=== PATIENT | female | born 1960 | race African-American/Black ===

== ENCOUNTER 2019-04-27 10:57 | Inpatient (IN) ==
[2019-04-27] MEDS ORDERED: PULMICORT INH ONE (11:07)
[2019-04-27] MEDS ORDERED: DUONEB (A & A) INH ONE (11:08)
[2019-04-27] MEDS ORDERED: SOLU-MEDROL IV ONE (11:08)
[2019-04-27 11:59] LABS: BE 12.2 mmoll (-3.0-3.0); BLOOD TYPE ARTERIAL; HCO3-(ACT) 34.3 mmoll (20.0-26.0); METHB 0.3 % (0.0-1.5); O2(CT) 16.5 mL/dL (15.0-23.0); PO2(98.6) 67 mmHg (60-100); SAMPLE BLOOD; THB 12.7 g/dL (11.5-17.4); pH(98.6) 7.36 (7.35-7.45)
[2019-04-27 12:02] LABS: ALLEN TEST YES; MODALITY CANNULA; PCO2(98.6) 72 mmHg (35-45)
--- NOTE | 2019-04-27 12:10 | Diag Imaging Result Doc PS360 ---
EXAM: CHEST-2 VIEWS 04/27/2019 HISTORY: cough TECHNIQUE: PA and lateral chest COMMENT: There are no previous studies. There is pleural thickening and/or loculated effusion bilaterally. There is cardiomegaly. There are coarse and platelike opacities over both lungs particularly the right upper lobe which may be due to fibrosis and/or atelectasis. There is increased interstitial markings generally which again may be due to pulmonary edema or fibrosis. IMPRESSION: Pleural parenchymal changes as described above. Advise comparison with previous studies. Cardiomegaly. Electronically signed by Rei Walker 04/27/2019 12:08 PM
[2019-04-27 12:26] LABS: AGAP 7; ALBUMIN 3.7 g/dL (3.5-5.0); ALKALINE PHOSPHATASE 72 U/L (32-104); BUN 6 mg/dL (8-22); CALCIUM 9.3 mg/dL (8.8-10.2); CHLORIDE 97 mmol/L (98-107); COSMO 281; CREATININE 0.4 mg/dL (0.5-0.9); ESTIMATED GFR > 60; GLUCOSE 144 mg/dL (70-104); GOT 12 U/L (10-30); GPT 11 U/L (10-36); POTASSIUM 4.4 mmol/L (3.5-5.1); SODIUM 141 mmol/L (136-145); TCO2 37 mmol/L (25-35); TOTAL PROTEIN 6.8 g/dL (6.3-8.3)
[2019-04-27] MEDS ORDERED: ROCEPHIN IV ONE (12:50)
[2019-04-27] MEDS ORDERED: NS 50 ML ONE (12:51)
[2019-04-27] MEDS ORDERED: MORPHINE IV PRN (12:56)
[2019-04-27] MEDS ORDERED: ZOFRAN IV PRN (12:56)
[2019-04-27 13:38] LABS: BASO# 0.03 X1000 (0.0-0.2); BASO% 0.3 % (0.0-0.8); EOS# 0.18 X1000 (0.0-0.7); EOS% 1.6 % (0.0-10.0); HEMATOCRIT 46.1 % (37.0-47.0); HEMOGLOBIN 12.5 g/dL (12.0-16.0); IMM GRAN# 0.03 X1000 (0.0-0.04); IMM GRAN% 0.3 % (0.0-0.5); LYMPH# 1.31 X1000 (1.2-3.4); LYMPH% 11.4 % (20.5-51.1); MCHC 27.1 g/dL (33-37); MCV 88.5 FL (81-99); MONO# 0.83 X1000 (0.11-0.59); MONO% 7.2 % (1.7-9.3); MPV 12.1 FL (7.4-10.4); NEUT# 9.08 X1000 (1.4-6.5); NEUT% 79.2 % (42.2-75.2); PLT 391 X1000 (130-400); RBC 5.21 XMIL (4.2-5.4); RDW 19.7 % (11.5-14.5); WBC 11.46 X1000 (4.8-10.8)
--- NOTE | 2019-04-27 13:40 | EKG Report ---
Test Performed on : 04/27/2019 11:08:44 AM Test Reason : sob; chf Blood Pressure : / mmHG Vent. Rate : 107 BPM Atrial Rate : 107 BPM P-R Int : 144 ms QRS Dur : 066 ms QT Int : 334 ms P-R-T Axes : 065 105 024 degrees QTc Int : 445 ms Sinus tachycardia. Biatrial enlargement Possible Right ventricular hypertrophy Abnormal ECG No previous ECGs available Unconfirmed Result
--- NOTE | 2019-04-27 14:21 | PROVIDER DOCUMENTATION ---
This chart was entered by Divya Cuevas Scribe, acting as scribe for Karen Miller MD. HPI-Respiratory General - General Stated Complaint: RESP DISTRESS Time Seen by Provider: 04/27/19 10:58 Source: patient, EMS Allergies/Adverse Reactions: Patient Allergies Allergy/AdvReac Type Severity Reaction Status Date / Time No Known Allergies Allergy Verified 04/27/19 11:17 - History of Present Illness-Resp Nature of Presenting Problem: 59yof presents to ED by EMS cc SOB and low o2. EMS reports they were called to pt PCP b/c pt o2 was in the 40's so EMS put pt on 5lit and o2 went up to 90%. Pt reports she is on 3lit of o2 at home. Pt denies cough, fever, chest pain, N/V/D. Pt has hx of COPD. Pt is tachypneic upon exam. 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 denies: chills, fever Eyes: reports: no symptoms reported Ears, Nose, Mouth & Throat: reports: no symptoms reported Cardiovascular: reports: see HPI. denies: chest pain Respiratory: reports: see HPI, shortness of breath. denies: cough Gastrointestinal: reports: see HPI. denies: diarrhea, nausea, vomiting Genitourinary: reports: no symptoms reported Musculoskeletal: reports: no symptoms reported Integumentary: reports: no symptoms reported Neurological: reports: no symptoms reported Psychiatric: reports: no symptoms reported Endocrine: reports: no symptoms reported Hematologic/Lymphatic: reports: no symptoms reported Allergic/Immunologic: reports: no symptoms reported All Other Systems: Reviewed and Negative Past History - Adult - PAST MEDICAL HISTORY-ADULT Review of Records: reports: Nursing Assessment Review, Medications Reviewed, Social history reviewed & non-contributory. Major Childhood Illnesses: reports: denies history Cardiovascular: reports: denies history Respiratory: reports: COPD Gastrointestinal: reports: denies history Obstetrical/Gynecological: reports: denies history Genitourinary: reports: denies history Musculoskeletal: reports: denies history Neurological: reports: denies history Endocrine/Immune: reports: denies history Other Conditions: reports: denies history - IMMUNIZATION STATUS Childhood Immunizations: See Nurse Assessment Flu Vaccine: See Nurse Assessment - FAMILY HISTORY Family History: reviewed, not pertinent - SOCIAL HISTORY Smoking: quit greater than 1 year Physical Exam-General - PHYSICAL EXAM-ADULT Initial Vital Signs Reviewed: Yes - CONSTITUTIONAL General Appearance: alert, moderate distress. negative: anxious, combative - EYES Eyes: PERRL/EOMI, pink conjunctivae. negative: photophobia - HEAD, EARS, NOSE, MOUTH & THROAT HENMT: normocephalic/atraumatic, moist mucous membranes. negative: angioedema - RESPIRATORY Respiratory: chest non-tender, other (distant breath sounds, not moving much air and tachypneic). negative: normal breath sounds - CARDIOVASCULAR Cardiovascular: normal peripheral pulses, tachycardia. negative: regular rate, rhythm, bradycardia - GASTROINTESTINAL (ABDOMEN) Abdominal Exam: normal bowel sounds, non tender. negative: rebound - MUSCULOSKELETAL Back Exam: normal inspection, no CVA tenderness, no vertebral tenderness Extremity: normal inspection. negative: deformity - SKIN Integumentary: normal color. negative: diaphoresis, ecchymosis, rash - PSYCHIATRIC Psych/Mental Status: normal mood/affect, oriented x 3. negative: anxious, di sheveled Progress - PLAN OF CARE/RESULTS Progress/Plan/Lab Results: Vital Signs - 8 hr 04/27/19 10:58 04/27/19 11:11 Temperature 97.7 F Pulse Rate 103 H 108 H Respiratory Rate 20 18 Blood Pressure 126/72 O2 Sat by Pulse Oximetry 75 L 95 Laboratory Results - last 24 hr 04/27/19 04/27/19 04/27/19 11:31 11:31 11:38 Specimen Type ARTERIAL Sample Site R BRACHIAL pH 7.36 pCO2 72 H* pO2 67 HCO3 34.3 H Base Excess 12.2 H Oxyhemoglobin 92.0 L ABG O2 Sat (Calculated) 16.5 ABG O2 Saturation 96.0 ABG Carboxyhemoglobin 3.90 H ABG Methemoglobin 0.3 Marcellus Test YES A-a O2 Difference 71.0 Total Hemoglobin 12.7 Lactate 0.90 Liter Flow 3.0 Blood Gas Modality CANNULA FiO2 % 32.0 Sodium 141 Potassium 4.4 Chloride 97 L Carbon Dioxide 37 H Anion Gap 7 BUN 6 L Creatinine 0.4 L Estimated GFR/1.73 m2 > 60 BUN/Creatinine Ratio 15 Glucose 144 H Calculated Osmolality 281 Calcium 9.3 Total Bilirubin 0.30 AST 12 ALT 11 Alkaline Phosphatase 72 Total Protein 6.8 Albumin 3.7 Globulin 3.0 Albumin/Globulin Ratio 1.0 Plasma Lactate 1.1 Orders Category Date Time Status Saline Loc NOW Care 04/27/19 11:07 Active CHEST-2 VIEWS [RAD] Stat Exams 04/27/19 11:07 Completed ABG [RESP] Routine Lab 04/27/19 11:38 Completed BLOOD CULTURE [BLDCUL] Stat Lab 04/27/19 11:09 Ordered CBC WITH DIFF [HEME] Stat Lab 04/27/19 11:31 Results COMPREHENSIVE METABOLIC PANEL [CHEM] Stat Lab 04/27/19 11:31 Completed LACTATE, PLASMA [CHEM] Stat Lab 04/27/19 11:31 Completed Albuterol 2.5MG/Ipratrop 0.5MG [Duoneb (A & A)] Med 04/27/19 11:08 Discontinued 3 ml INH NOW ONE Budesonide [Pulmicort] Med 04/27/19 11:07 Discontinued 0.5 mg INH NOW ONE Methylprednisolone Sod Succ [Solu-Medrol] Med 04/27/19 11:08 Discontinued 125 mg IV NOW ONE Aerosol Treatments Routine Ot 04/27/19 11:07 Completed Aerosol Treatments Routine [facility] 04/27/19 11:08 Completed Aerosol Treatments Stat [facility] 04/27/19 11:07 Completed Aerosol Treatments Stat Ot 04/27/19 11:08 Completed BIPAP Stat Ot 04/27/19 12:09 Active Pulse Oximetry Stat Ot 04/27/19 11:07 Active Result Diagrams: 04/27/19 11:31 04/27/19 11:31 - EKG 1 Time of EKG reading by physician:: 11:16 EKG Read and Signed by:: Karen Miller EKG Interpretation (*Must complete 3 of following elements*): Abnormal (biatrial enlargement; possible right venticular hypertrophy) Rate: 107 Rhythm: sinus tachycardia [place]: normal ST Wave: normal - CONSULTS/PCP/HOSPITALIST Notification #1 *Consult/PCP/Hospitalist*: Dr. Vallejo Time Discussed: 12:50 Consult Disposition: Admit (accepted pt) Departure - Departure Date of Disposition Decision: 04/27/19 Time of Disposition Decision: 12:50 DIAGNOSIS: COPD exacerbation Disposition: ADMITTED INPATIENT 09 Certified Medical Emergency: Emergent Condition: Stable Additional Freetext Instructions: ED Follow Up Instructions: You have been treated by a care provider in the Emergency Department. These instructions are being provided to you so you can have an understanding of how to care for yourself upon discharge. Upon discharge from the Emergency Department, you are responsible for making arrangements for follow-up care by a physician of your choice. Take all prescribed medications as directed. Return to the Emergency Department immediately for any new or worsening symptoms . You may call the Physician Referral phone number at [phone] to obtain a list of Physicians who are taking new patients. - Critical Care Note This patient required my direct & personal management of CC.: Yes Total Time (mins): 45 Critical Care Statement: This patient required my direct personal management to treat or rule out processes, the absence of which, could potentiallly result in sudden, clinically significant life or limb threatening deterioration. Attestation - Physician/ BRANDO Attestation Patient care was provided by Advanced Practice Provider:: No The physician spent face to face time with patient:: Yes Advanced Practice Provider documentation review:: Supervising physician onsite and consulted in the evaluation and care of this patient. The physician did have a face to face encounter with the patient. This chart was documented by the indicated scribe, (Divya Cuevas Scribe) and accurately reflects the services I performed and decisions made by me, Karen Miller MD, as attested by the provider's signature.
[2019-04-27] MEDS ORDERED: TYLENOL PO PRN (15:54)
[2019-04-27] MEDS: LASIX IV SCH (16:52)
[2019-04-27] MEDS: HUMULIN R (PARKWAY) SUBQ SCH ×2 (16:52→21:29)
[2019-04-27 17:21] LABS: HEMOGLOBIN A1C 6.9 % (4.8-6.0)
[2019-04-27 17:29] LABS: INR 0.93; PROTIME 12.9 Seconds (11.0-16.0); PTT 27.7 Seconds (22.3-41.8)
[2019-04-27 17:40] LABS: FREE T4 1.12 ng/dL (0.93-1.70); TSH 0.25 uIUmL (0.27-4.20)
--- NOTE | 2019-04-27 17:57 | EKG Report ---
Test Performed on : 04/27/2019 2:46:51 PM Test Reason : REPEAT FOR CP Blood Pressure : / mmHG Vent. Rate : 096 BPM Atrial Rate : 096 BPM P-R Int : 148 ms QRS Dur : 074 ms QT Int : 364 ms P-R-T Axes : 067 102 011 degrees QTc Int : 459 ms Normal sinus rhythm. Biatrial enlargement Right ventricular hypertrophy with repolarization abnormality Nonspecific T wave abnormality Abnormal ECG When compared with ECG of 27-APR-2019 11:08, (Unconfirmed) No significant change was found Unconfirmed Result
[2019-04-27] MEDS: SOLU-MEDROL IV SCH (19:26)
[2019-04-27] MEDS: PULMICORT INH SCH (19:29)
[2019-04-27] MEDS: DUONEB (A & A) INH SCH ×2 (19:29→23:09)
[2019-04-27] MEDS ORDERED: XOPENEX NEB INH SCH (19:30)
--- NOTE | 2019-04-27 20:06 | ECHO REPORT ---
ORDER DATE: 04/27/2019 REQUESTING PHYSICIAN: Emergency room echocardiogram requested by the hospitalist service. INDICATION: Dyspnea. M-MODE MEASUREMENTS: Left ventricle end diastole: 3.8. Left ventricle end systole: 2.6. Posterior wall: 1.1. Interventricular septum: 1.1. Left atrium: 4.3. Aortic root: 2.8. SUMMARY OF 2-DIMENSIONAL IMAGIN. This study is very abnormal. The right ventricle is markedly dilated and is creating flattening of the interventricular septum both during systole and diastole, suggesting significant pulmonary hypertension or acute systolic pressure overload.RV systolic function moderately impaired. 2. The tricuspid valve shows a moderate degree of regurgitation. The pulmonary pressure appears to be significantly elevated, estimated at 70 mmHg. 3. The aortic valve is normal. 4. The left ventricle shows normal function. Again, the interventricular septum is flattened both in systole and diastole. That is consistent with severe pulmonary hypertension and a possible case of thromboembolic lung disease. 5. The mitral valve is unremarkable. Color flow mapping indicates a mild degree of regurgitation. 6. Pulsed wave Doppler of mitral inflow is normal. 7. Tissue Doppler of septal and lateral mitral annulus averages 10 cm. 8. There is no diastolic dysfunction. 9. The pulmonic valve is unremarkable. 10.The aortic valve is normal. 11.There is a trace pericardial effusion. SUMMARY: This study is suspicious for the presence of severe vascular lung disease or chronic thromboembolic lung disease (chronic plus acute component). The left ventricular function is normal. The right ventricle is dilated, hypokinetic, with significant flattening of the interventricular septum on both systole and diastole. Pulmonary systolic pressure is estimated at 70 mmHg. The mitral and aortic valves are unremarkable. Clinical correlation is strongly recommended. cc: MD Daisha Stevens CRNP MTDD
[2019-04-28] MEDS: DUONEB (A & A) INH SCH ×6 (03:12→23:34)
--- NOTE | 2019-04-28 04:04 | HISTORY AND PHYSICAL ---
PRIMARY CARE PROVIDER: No one. CHIEF COMPLAINT: Shortness of breath. HISTORY OF PRESENT ILLNESS: Ms. Chayo Welch is a 59-year-old female, who moved here from [place] 1 month ago and is currently not set up with Cardiology or primary. Apparently she had that set up for her when she was in [place]. States she has a medical history of congestive heart failure, diabetes, hyperlipidemia, GERD, neuropathy. Apparently has been having some shortness of breath that has been progressive over the last few weeks, but apparently was excessively short of breath this morning. Attempted to go to her primary care provider, was found to have low O2 saturations, and was sent to the emergency department. Apparently now she had gone to the PCP, but she was unclear of who it was that she went to, but it was reported by EMS that she had O2 saturations in the 40s, increased her home oxygen to 5 L and her O2 saturations came up to 90%. She states she has a history of COPD, on 3 L nasal cannula at home, but it can be up to as high as 5 L when she is active. Denies any productive phlegm. Denies fever, chills, nausea, vomiting, or diarrhea. Denies chest pain. Has an elevated white count here. Her CO2 was up, but her pH is normal. Denies smoking, but actually has an elevated carboxyhemoglobin. Her proBNP is not terribly elevated at 536, but her x-ray shows an enlarged heart and may even show some pulmonary edema. Temporarily required BiPAP for an elevated CO2. We will monitor her in the ICU and do a workup on her. PAST MEDICAL HISTORY: 1. COPD on 3 L home oxygen. 2. Congestive heart failure, likely systolic, but we are getting an echocardiogram. 3. Diabetes mellitus, type 2. 4. Hyperlipidemia. 5. Hemorrhoids. 6. GERD. 7. Neuropathy diabetic neuropathy. 8. Seasonal allergies. 9. Bilateral arm rashes that are chronic. SURGICAL HISTORY: section. SOCIAL HISTORY: Just moved here from [place] 1 month ago and was not set up with any physicians yet. She is on disability. 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 Now she stays at home with her grandson. As far as smoking goes, she quit around 7 years ago, but smoked since the age of 18. Drinks about 1 glass of wine, 2 beers every couple months, not very often. FAMILY HISTORY: Mother had stroke and heart attack at 79. ALLERGIES: No known drug allergies. HOME MEDICATIONS: 1. Hydroxyzine 25 mg p.o. nightly. 2. Albuterol inhaled. 3. Elda 180 mg p.o. daily. 4. Ammonia lactate topical for the arms. 5. Hydrocortisone per perineal applicator p.r.n. 6. Aspirin 81 mg p.o. daily. 7. Calcium 500 mg p.o. daily. 8. Coreg 3.125 mg p.o. twice daily. 9. Zyrtec 10 mg p.o. daily. 10. Daliresp 500 mg p.o. daily. 11. Docusate sodium 100 mg p.o. daily. 12. Albuterol/Atrovent nebulizers every 4 hours p.r.n. 13. Dymista nasal twice a day. 14. Flexeril 10 mg p.o. p.r.n. 15. Lasix 20 mg p.o. daily. 16. Metformin 500 mg p.o. with breakfast. 17. Kenalog topical 3 times a day. 18. Lactulose 10 mg p.o. t.i.d. 19. Lidex cream. 20. Atorvastatin 20 mg p.o. daily. 21. Lyrica 150 mg p.o. daily. 22. Magnesium oxide 400 mg p.o. daily. 23. Nasonex. 24. Percocet 10, probably every 4 hours p.r.n. 25. Potassium chloride 20 mEq p.o. daily. 26. Magnesium carbonate daily. 27. Spiriva 2 puffs inhaled daily. 28. Clobetasol cream 29. Trelegy Ellipta 100/62.5/25 inhaled daily. 30. Vaporizing steam of menthol, eucalyptus, and camphor as needed. 31. Vitamin B12, 1000 mcg p.o. daily. 32. Vitamin D3 p.o. daily. 33. Zantac 150 mg p.o. twice daily. REVIEW OF SYSTEMS: A 14 point review of systems was complete and all were negative except for those mentioned above in the HPI. PHYSICAL EXAMINATION: VITAL SIGNS: Temperature 97.9 degrees, heart rate 87, respiratory rate 21, blood pressure 121/73, O2 saturation 95% on BiPAP dropped back down to 5 L, 5-feet 3-inches tall, 192 pounds, BMI 34. GENERAL: Ms. Chayo Welch is a 59-year-old female. She is in no acute distress. She sounds congested, but she is able answer questions appropriately. HEENT: Atraumatic, normocephalic. Pupils equal, round, and reactive to light. Extraocular movements intact. Mucous membranes are moist. NECK: Trachea midline. CARDIOVASCULAR: S1, S2 regular rate and rhythm. No rubs, gallops, murmurs. Trace lower extremity edema. +2 dorsalis and radial pulses. Negative JVD or carotid bruits. PULMONARY: Clear to auscultate. Bilateral breath sounds decreased in the bases. No accessory muscle use or work of breathing noted. She is tolerating 5 L nasal cannula at this time, but has had to have BiPAP since she has been here. GASTROINTESTINAL: Soft, round, nontender. Positive bowel sounds x4. EXTREMITIES: Moves all extremities equally with full range of motion. NEUROLOGIC: AA O x3. Follows commands. Sensory is intact. SKIN: Warm, dry, intact with a skin-colored rash along both arms, left worse than the right. LABORATORY DATA: White blood cells 11,000, hemoglobin 12, hematocrit 46, platelet count 391,000. ABGs on 3 L nasal cannula: PH 7.36, pCO2 of 72, PO2 of 67, bicarbonate 34, base excess 12, saturation 92%, carboxyhemoglobin 3.9, lactate 0.9, this is on 3 L nasal cannula. Sodium 141, potassium 4.4, BUN 6, creatinine 0.4, glucose 144, calcium 9.3, bilirubin 0.30, AST 12, ALT 11. CK 64, troponin less than 0.01. ProBNP 536. Albumin 3.7. Serum lactate 1.1 and 1.1. IMAGING: Chest x-ray: Pleural parenchymal changes. Cardiomegaly. Interstitial marking possibly due to pulmonary edema or fibrosis. There is pleural thickening or loculated effusion bilaterally. DIAGNOSTIC STUDIES: EKG: Sinus tachycardia, rate 107, QTc 445. ASSESSMENT AND PLAN: 1. Acute on chronic hypercarbic hypoxemic respiratory failure with history of chronic obstructive pulmonary disease, on 3 L of oxygen at home. She is continued on oxygen here. We will do nebulizers, steroids, antibiotics will be Rocephin, p.r.n. on the BiPAP. She will be monitored in the ICU. 2. Likely acute on chronic congestive heart failure, diastolic versus systolic as there is some fluid in the lungs and pleural effusions. We will give her Lasix, and we will check her echocardiogram. 3. Given her symptoms, we will check a D-dimer. If it is elevated, we can get a CTA of the lungs. 4. Diabetes mellitus, type 2. We will do patterned blood glucoses, sliding scale insulin. 5. Hyperlipidemia. Continue statin. 6. Gastroesophageal reflux disease. Continue Zantac. 7. Diabetic neuropathy. We will continue her home medications for that as well. 8. Seasonal allergies. Again, we will continue Zyrtec and any other seasonal allergy medications. 9. Bilateral arm rashes. There are several different skin ointments she uses. She states that it itches when it acting up. There is no discoloration of the rash; it is just elevated. 10. Deep venous thrombosis. Lovenox. Dictated by PANCHITO Olmedo for Aleksandr Rai MD Addendum: Patient seen and examined by myself. Agree with PANCHITO note. It reflects my assessment and plan. Patient is being admitted to hospital for acute hypercarbic respiratory failure. Will start Duoneb q4hs scheduled and will check an echocardiogram as well. Will monitor patient closely. cc: PANCHITO Olmedo MD [facility]
[2019-04-28] MEDS: LASIX IV SCH ×2 (05:41→16:17)
[2019-04-28] MEDS: SOLU-MEDROL IV SCH ×3 (05:41→20:20)
[2019-04-28 06:10] LABS: BE 13.2 mmoll (-3.0-3.0); BLOOD TYPE ARTERIAL; HCO3-(ACT) 35.1 mmoll (20.0-26.0); METHB 1.1 % (0.0-1.5); O2(CT) 17.7 mL/dL (15.0-23.0); O2HB 92.5 % (95.0-99.0); PO2(98.6) 71 mmHg (60-100); SAMPLE BLOOD; SAO2 95.8 % (95.0-100.0); THB 13.6 g/dL (11.5-17.4); pH(98.6) 7.35 (7.35-7.45)
[2019-04-28 06:12] LABS: ALLEN TEST NO; MODALITY BI PAP; PCO2(98.6) 77 mmHg (35-45)
[2019-04-28] MEDS: HUMULIN R (PARKWAY) SUBQ SCH ×4 (07:07→21:00)
[2019-04-28] MEDS: PULMICORT INH SCH ×2 (07:38→19:30)
[2019-04-28] MEDS: ROCEPHIN 1 GM in NS 50 ML IV SCH (08:43)
[2019-04-28] MEDS: LOVENOX SUBQ SCH (08:43)
--- NOTE | 2019-04-28 08:52 | Diag Imaging Result Doc PS360 ---
EXAM: CHEST-PORTABLE HISTORY: short of breath TECHNIQUE: Single view of the chest was performed portably. COMPARISON: 04/27/2019 FINDINGS: There is cardiomegaly. Right pleural parenchymal thickening and coarse interstitial opacities are again demonstrated. Linear platelike atelectasis or fibrosis persists throughout both lungs right greater than left. There may be some mild improvement prior study. Evaluation is limited by body habitus and portable technique . IMPRESSION: Possible mild improvement in coarse interstitial and platelike opacities. Unchanged right pleural parenchymal thickening. Electronically signed by Juliana Florentino 04/28/2019 8:49 AM
--- NOTE | 2019-04-28 10:18 | PROGRESS NOTE ---
DATE: 04/28/2019 SUBJECTIVE: The patient reports breathing better compared with yesterday. Mild shortness of breath still reported. No other issues noted as per nursing staff overnight. OBJECTIVE: Vital Signs: Temperature 97.9, heart rate 69, respiratory rate 21, blood pressure 149/70, O2 saturation 97% 3 L nasal cannula. General Examination: This is a 59-year-old, - [place]i female lying in bed, in no acute distress. HEENT: Head is normocephalic and atraumatic. EOMI. Mucous membranes dry. Neck: No JVD noted. No carotid bruits. No lymphadenopathy. No thyromegaly. Cardiovascular Exam: S1 and S2 heard. No murmurs, gallops, or rubs. Regular rate and rhythm. Respiratory Exam: Decreased breath sounds globally but mostly noted in both bases. There are no crackles or rhonchi noted in both pulmonary bases. The patient is not using any accessory muscles or having work of breathing. Abdomen: Soft, nontender to palpation. Bowel sounds present. No organomegaly. Extremities: No clubbing, cyanosis, or edema. Peripheral pulses present in both legs. Neurological Exam: The patient is alert and oriented x3. Moves 4 extremities. LABORATORY DATA: ABG shows pH 7.35 with pCO2 77, pO2 71. ASSESSMENT AND PLAN: 1. Acute hypercarbic hypoxemic respiratory failure. 2. Chronic obstructive pulmonary disease exacerbation. 3. Congestive heart failure. 4. Diabetes mellitus type 2. 5. Hyperlipidemia. 6. Gastroesophageal reflux disease. 7. Diabetic neuropathy. PLAN: At this point, considering her elevated CO2, I have explained to the patient the importance of using BiPAP while she is here in the hospital. She is going to use BiPAP all night long and on daytime as much as she can. Of course, she will take some breaks for meals. The echocardiogram basically shows right side heart failure, suggest the possibility of severe vascular lung disease or chronic thromboembolic lung disease. Left ventricular function is normal with ejection fraction I have not seen that has been calculated. There is also significant pulmonary hypertension. In any case, patient has been also restarted on Lasix 20 mg IV q.12 hours. For this possibility of thromboembolic disease, we are going to do a CT angiogram of the chest considering that also that INR is elevated. We will see what it shows. For diabetes mellitus, will continue with sliding scale insulin and Accu-Chek before meals and also at bedtime. For diabetic neuropathy, will continue home medications. For chronic pain, she has been explained that we have to be very cautious using pain medication that would depress respiratory function further. The patient acknowledged understanding. At this point, will continue to monitor here in the Intensive Care Unit. cc: Aleksandr Rai MD
--- NOTE | 2019-04-28 10:59 | Diag Imaging Result Doc PS360 ---
EXAM: CT ANGIOGRM PULMONARY ARTERIES HISTORY: PE suspected TECHNIQUE: Images were obtained from the lung apices through bases as per standard protocol. This exam was performed using automated exposure control, adjustment of mA or kV according to patient size, and/or use of iterative reconstruction technique. 3-D postprocessing with MPR/MIPs. COMPARISON: None. FINDINGS: Pulmonary artery: . Suboptimal opacification and motion degrades images. No definitive filling defects are appreciated. There is no evidence for acute pulmonary embolism within the proximal vessels. Difficult to exclude small emboli at the lung bases. Mediastinum: There is cardiomegaly. Trace pericardial effusion. No pathologically enlarged lymph nodes are identified. No aortic aneurysm. There is no evidence for aortic dissection. No hilar lymphadenopathy. Airway: No large airway obstruction. No focal mass. Pulmonary parenchyma: There are multiple bilateral linear areas of fibrosis or platelike atelectasis extending to the pleural surfaces. There are groundglass infiltrates at the bases. There is mild compressive atelectasis is left lower lobe Pleura: There are small bilateral pleural effusions. Moderate diffuse pleural calcifications right hemithorax. Bones: No fracture or destructive lesion is identified. IMPRESSION: 1.No evidence for acute pulmonary embolism although evaluation is somewhat limited. 2.Multiple areas of bilateral parenchymal fibrosis or platelike atelectasis. 3.Groundglass infiltrates at the bases. 4.Bilateral pleural effusions with diffuse pleural calcification right hemithorax. 5.Cardiomegaly. Electronically signed by Juliana Florentino 04/28/2019 10:56 AM
[2019-04-28] MEDS: FLEXERIL PO SCH (20:20)
[2019-04-28] MEDS: LYRICA PO SCH (20:20)
[2019-04-28] MEDS: PERCOCET-10 PO PRN (20:20)
[2019-04-29] MEDS: DUONEB (A & A) INH SCH ×6 (04:20→23:50)
[2019-04-29 04:50] LABS: BE 13.7 mmoll (-3.0-3.0); BLOOD TYPE ARTERIAL; HCO3-(ACT) 35.6 mmoll (20.0-26.0); METHB 1.3 % (0.0-1.5); O2(CT) 18.8 mL/dL (15.0-23.0); O2HB 95.3 % (95.0-99.0); PO2(98.6) 114 mmHg (60-100); SAMPLE BLOOD; SAO2 98.6 % (95.0-100.0); SRATE 6 BPM; THB 13.9 g/dL (11.5-17.4); pH(98.6) 7.33 (7.35-7.45)
[2019-04-29] MEDS: SOLU-MEDROL IV SCH ×3 (05:15→20:45)
[2019-04-29] MEDS: LASIX IV SCH ×2 (05:35→15:12)
[2019-04-29 05:41] LABS: ALLEN TEST YES; MODALITY BI PAP; PCO2(98.6) 83 mmHg (35-45)
[2019-04-29 07:37] LABS: AGAP 12; ALBUMIN 3.7 g/dL (3.5-5.0); ALKALINE PHOSPHATASE 77 U/L (32-104); BUN 15 mg/dL (8-22); CALCIUM 9.4 mg/dL (8.8-10.2); CHLORIDE 92 mmol/L (98-107); COSMO 278; CREATININE 0.5 mg/dL (0.5-0.9); ESTIMATED GFR > 60; GLUCOSE 157 mg/dL (70-104); GOT 15 U/L (10-30); GPT 13 U/L (10-36); POTASSIUM 5.3 mmol/L (3.5-5.1); SODIUM 137 mmol/L (136-145); TCO2 34 mmol/L (25-35); TOTAL PROTEIN 7.5 g/dL (6.3-8.3)
[2019-04-29] MEDS: LYRICA PO SCH ×2 (08:00→20:44)
[2019-04-29] MEDS: ROCEPHIN 1 GM in NS 50 ML IV SCH (08:00)
[2019-04-29] MEDS: FLEXERIL PO SCH (08:00)
[2019-04-29] MEDS: LOVENOX SUBQ SCH (08:00)
[2019-04-29] MEDS: HUMULIN R (PARKWAY) SUBQ SCH ×3 (08:00→15:12)
[2019-04-29] MEDS: PULMICORT INH SCH (08:37)
[2019-04-29 08:39] LABS: HEMATOCRIT 50.3 % (37.0-47.0); IMM GRAN# 0.04 X1000 (0.0-0.04); IMM GRAN% 0.3 % (0.0-0.5); LYMPH# 0.51 X1000 (1.2-3.4); LYMPH% 3.2 % (20.5-51.1); MCHC 27.8 g/dL (33-37); MCV 86.1 FL (81-99); MONO# 0.55 X1000 (0.11-0.59); MONO% 3.5 % (1.7-9.3); MPV 11.6 FL (7.4-10.4); NEUT# 14.68 X1000 (1.4-6.5); PLT 316 X1000 (130-400); RBC 5.84 XMIL (4.2-5.4); RDW 20.6 % (11.5-14.5); WBC 15.78 X1000 (4.8-10.8)
[2019-04-29] MEDS: ZYVOX 600 MG/D5W 600 MG/300 ML IVPB IV SCH ×2 (09:48→20:45)
[2019-04-29] MEDS: ZOSYN 3.375 GM in NS 50 ML IV SCH ×4 (09:48→21:52)
[2019-04-29 09:52] LABS: LYMPHS 3 % (21-51); MONO 2 % (1-9); SEGS 95 % (42-75)
--- NOTE | 2019-04-29 10:52 | PROGRESS NOTE ---
DATE: 04/29/2019 SUBJECTIVE: Patient reports breathing fine. Still mild shortness of breath noted. No other issues noted as per nursing staff overnight. OBJECTIVE: Vital Signs: Temperature 97.7 degrees, heart rate 88, respiratory 19, blood pressure 103/58, and O2 saturation 30% on 4 L nasal cannula. General: This is a 59-year-old female lying in bed in no acute distress. HEENT: Head is normocephalic, atraumatic. Mucous membranes dry. Neck: No JVD noted. No carotid bruits. No lymphadenopathy. No thyromegaly. Cardiovascular: S1, S2 heard. No murmurs, gallops, or rubs. Regular rate and rhythm. Respiratory: Decreased breath sounds globally. No crackles or rhonchi noted in both bases. Patient not using any accessory muscles or having work of breathing. Abdomen: Soft. Nontender to palpation. Bowel sounds present. No organomegaly. Extremities: No clubbing, cyanosis, or edema. Peripheral pulses present in both legs. Neurological: Patient alert and oriented x3. Moves all 4 extremities. LABORATORY DATA: White cell count is 15.78 with hemoglobin 14.0. ABG shows pH 7.32, with pCO2 88, and PO2 114 that was on BiPAP. Lactate is 2.6. Potassium 5.3. ASSESSMENT AND PLAN: 1. Acute hypercarbic hypoxemic respiratory failure. 2. Chronic obstructive pulmonary disease exacerbation. 3. Congestive heart failure. 4. Severe pulmonary hypertension. 5. Diabetes mellitus type 2. 6. Hyperlipidemia. 7. Gastroesophageal reflux disease. 8. Diabetic neuropathy. Examining this patient, and although clinically she is stable, I informed to her that her CO2 is actually getting worse. The patient was really upset with results of ABG because she said that she was using BiPAP yesterday most of the day and nighttime all night long. We informed to her about the results of pulmonary arteriogram, and also echocardiogram. The echocardiogram suggests thromboembolic lung disease, but we did not find any blood clots. This is just some infiltrate so we are going to start broad-spectrum antibiotics. The patient requests pulmonary evaluation, and also because of her severe pulmonary hypertension she also request cardiology evaluation as well. The patient moved from [place] less than a month ago, and she has been seen by both subspecialties before. At this point, we are going to transfer this patient to PVC. We will consult Cardiology and Pulmonary. For diabetes mellitus type 2, we will continue with sliding scale insulin and Accu-Chek before meals, and also at bedtime. For diabetic neuropathy. We will restart home medications. For chronic pain, patient has been restarted on oxycodone that according to her she has been taking for a long period of time. DISPOSITION: Patient is going to [facility] to the P[facility] unit cc: Aleksandr Rai MD MTDD
[2019-04-29] MEDS: PERCOCET-10 PO PRN (12:39)
[2019-04-29] MEDS: LOKELMA POWDER PACKET PO SCH ×2 (15:11→17:47)
[2019-04-29] MEDS: COREG PO SCH ×2 (16:40→20:44)
--- NOTE | 2019-04-29 18:32 | PROGRESS NOTE ---
DATE: 04/29/2019 This is a 59-year-old female who moved from [place] a month ago. Currently not set up with Cardiology or Pulmonary or any Primary Care. Apparently, she just came in from [place]. past medical history of congestive heart failure, diabetes mellitus type 2, hyperlipidemia, gastroesophageal reflux disease, neuropathy. Has been having some shortness of breath, progressive over the last few weeks, and apparently excessive short of breath the morning of admission, on 04/27/2010. Attempted to get a primary care physician, but was found to have low O2 saturations and was sent to the emergency room. Apparently, she is not sure who her primary care physician is, or does not remember EMS. She was brought in and had O2 saturations in the 40s, increased her oxygen to 5 L, and O2 saturations came up to 90%. States that she has a history of COPD and has been on 3 L nasal cannula for over 12 years at home, and turns it up as high as 5 L at times. She denies any productive phlegm. Denies any fever, chills, nausea, vomiting, diarrhea. Denies any chest pain. Has an elevated white count. When she arrived, CO2 was elevated. Her pH was normal. Denies smoking. Actually has an elevated carboxyhemoglobin. ProBNP was 536. Chest x-ray showed enlarged heart. May even have some pulmonary edema. She was put on BiPAP and temporarily will need some BiPAP. PAST MEDICAL HISTORY: 1. COPD, on 3 L O2. 2. Congestive heart failure, likely systolic. We will get an echocardiogram to look at that. 3. Diabetes mellitus type 2. 4. Hyperlipidemia. 5. Hemorrhoids. 6. Gastroesophageal reflux disease. 7. Diabetic neuropathy. 8. Seasonal allergies. 9. Bilateral arm rashes that are chronic. SURGICAL HISTORY: section. ADMISSION DIAGNOSIS: 1. Acute on chronic hypercarbic hypoxemic respiratory failure, with history of chronic obstructive pulmonary disease, on 3 L of oxygen, which she has been on for 12 years. Continue nebulizer, steroids, bronchodilators, and she is on BiPAP as needed. 2. Likely acute on chronic congestive heart failure, diastolic versus systolic, or probably combined. We will look at her echocardiogram. Cardiology and Pulmonary to help. 3. Check a D-dimer. Get a CTA of the lungs if needed. 4. Diabetes mellitus type 2. We will watch patterned sugars. Sliding scale. 5. Hyperlipidemia. 6. Gastroesophageal reflux disease. 7. Diabetic neuropathy. 8. Seasonal allergies. 9. She describes bilateral arm rashes and uses some ointment. There is no discoloration in the rash. Pulmonary arteriogram done yesterday. No evidence of acute pulmonary embolism, although evaluation was somewhat limited. Multiple areas of bilateral parenchymal fibrosis and platelike atelectasis, ground-glass infiltrates at the bases, bilateral pleural effusions, diffuse pleural calcifications, right hemithorax, and some cardiomegaly. I reviewed the orders. I do not see any change. She is on methylprednisone 40 mg IV q.8. She is on piperacillin 3.375 g IV q.6, linezolid 600 mg IV q.12, aspirin 81 mg a day, Lipitor 20 mg a day, Coreg 3.125 mg b.i.d., Lasix 40 mg IV q.12, lactulose 10 mL p.o. t.i.d., and she takes Daliresp 500 mg p.o. daily. cc: Marcellus Clemente MD
[2019-04-29] MEDS: LACTULOSE PO SCH (20:44)
[2019-04-29] MEDS: HUMULIN R SUBQ SCH (20:45)
[2019-04-30] MEDS: DUONEB (A & A) INH SCH ×6 (03:19→23:39)
[2019-04-30] MEDS: LASIX IV SCH ×2 (03:56→15:56)
[2019-04-30] MEDS: SOLU-MEDROL IV SCH ×3 (03:56→21:13)
[2019-04-30 05:28] LABS: BE 20.4 mmoll (-3.0-3.0); BLOOD TYPE ARTERIAL; HCO3-(ACT) 40.7 mmoll (20.0-26.0); METHB 0.8 % (0.0-1.5); O2(CT) 18.3 mL/dL (15.0-23.0); O2HB 91.9 % (95.0-99.0); PCO2(98.6) 91 mmHg (35-45); PO2(98.6) 67 mmHg (60-100); SAMPLE BLOOD; SAO2 94.7 % (95.0-100.0); THB 14.2 g/dL (11.5-17.4); pH(98.6) 7.36 (7.35-7.45)
[2019-04-30 05:32] LABS: ALLEN TEST YES; MODALITY BI PAP
[2019-04-30] MEDS: HUMULIN R SUBQ SCH ×4 (06:15→21:15)
[2019-04-30 06:19] LABS: HEMATOCRIT 49.4 % (37.0-47.0); HEMOGLOBIN 13.7 g/dL (12.0-16.0); IMM GRAN# 0.02 X1000 (0.0-0.04); IMM GRAN% 0.2 % (0.0-0.5); LYMPH# 0.35 X1000 (1.2-3.4); LYMPH% 2.7 % (20.5-51.1); MCH 24.1 PG (27-31); MCHC 27.7 g/dL (33-37); MONO# 0.51 X1000 (0.11-0.59); MONO% 3.9 % (1.7-9.3); MPV 10.8 FL (7.4-10.4); NEUT# 12.32 X1000 (1.4-6.5); NEUT% 93.2 % (42.2-75.2); PLT 367 X1000 (130-400); RBC 5.68 XMIL (4.2-5.4); RDW 20.5 % (11.5-14.5)
[2019-04-30 06:27] LABS: ESTIMATED GFR > 60
[2019-04-30 06:40] LABS: AGAP 7; ALB/GLOB RATIO 1.1; ALBUMIN 3.8 g/dL (3.5-5.0); ALKALINE PHOSPHATASE 66 U/L (32-104); BUN 18 mg/dL (8-22); CALCIUM 9.8 mg/dL (8.8-10.2); CHLORIDE 88 mmol/L (98-107); COSMO 282; CREATININE 0.6 mg/dL (0.5-0.9); GLUCOSE 186 mg/dL (70-104); GOT 15 U/L (10-30); GPT 16 U/L (10-36); POTASSIUM 4.6 mmol/L (3.5-5.1); SODIUM 138 mmol/L (136-145); TCO2 43 mmol/L (25-35); TOTAL BILIRUBIN 0.19 mg/dL (0.20-1.00); TOTAL PROTEIN 7.4 g/dL (6.3-8.3)
--- NOTE | 2019-04-30 07:35 | PROGRESS NOTE ---
DATE: 04/30/2019 SUBJECTIVE: Ms. Welch says she is breathing a little better. She had the BiPAP on most of the night. OBJECTIVE: Vital Signs: Temperature 97.8 degrees, pulse 70, respirations 18, blood pressure 111/69. HEENT: Pupils are equal. Neck: No distended neck veins that I can appreciate. Lungs: Clear anterolateral. Cardiovascular: Regular rhythm and rate without murmur or S3. ASSESSMENT AND PLAN: 1. Acute hypercarbic hypoxemic respiratory failure. 2. Chronic obstructive pulmonary disease exacerbation. She is normally on 3 L of nasal cannula. She feels like she did get adequate oxygen from her home oxygen. This may have been what tipped her over. 3. Congestive heart failure. 4. Severe pulmonary hypertension. 5. Diabetes mellitus type 2. 6. Hyperlipidemia. 7. Gastroesophageal reflux disease. 8. Diabetic neuropathy. LABORATORY DATA: On review of her labs from this morning, white count is 13,200, hematocrit is 49, platelet count 367,000. Sodium 138, potassium 4.6, chloride 88, BUN 18, creatinine 0.6, blood sugar 233, 261, 186 167. REVIEW OF HER ORDERS: She is getting Tylenol 650 mg p.o. 6 hours p.r.n. She is on albuterol ipratropium treatments, inhalation treatments q.4 hours p.r.n., aspirin 81 mg a day, Lipitor 20 mg a day, Coreg 3.125 mg b.i.d., Lovenox 40 mg subcutaneous q.24 hours, Lasix 40 mg IV q. 12 hours, methylprednisone 40 mg IV q.8, and Lyrica 150 mg p.o. b.i.d., Daliresp, which is roflumilast 500 mcg daily. She is getting sodium zirconium powder 3 times a day, and on tiotropium bromide inhalation 2 puffs daily. She is empirically on some Zosyn 3.375 g IV q.6 and linezolid 600 mg IV q.12. Will repeat another chest x-ray today. She had some interstitial platelike opacities and right pleural effusion thickening I suspect consistent with atelectasis. cc: Marcellus Clemente MD
[2019-04-30 07:59] LABS: ANISOCYTOSIS 1+; BANDS 4 % (0-1); HYPOCHROM 1+; LYMPHS 8 % (21-51); MONO 4 % (1-9); SEGS 84 % (42-75)
--- NOTE | 2019-04-30 08:35 | Diag Imaging Result Doc PS360 ---
EXAM: CHEST-PORTABLE HISTORY: copd, chf TECHNIQUE: Single view COMPARISON: 04/28/2019 FINDINGS: Poor inspiratory effort. The heart is enlarged. Mild increased interstitial markings similar to the prior study. There are small pleural effusions. IMPRESSION: Cardiomegaly with mild pulmonary edema and small pleural effusions. Electronically signed by Joshua Rushing 04/30/2019 8:34 AM
[2019-04-30] MEDS: ZYVOX 600 MG/D5W 600 MG/300 ML IVPB IV SCH ×2 (08:52→21:14)
[2019-04-30] MEDS: LOKELMA POWDER PACKET PO SCH (08:53)
[2019-04-30] MEDS: LIPITOR PO SCH (08:53)
[2019-04-30] MEDS: LACTULOSE PO SCH ×3 (08:54→21:13)
[2019-04-30] MEDS: LOVENOX SUBQ SCH (08:54)
[2019-04-30] MEDS: COREG PO SCH ×2 (08:54→21:14)
[2019-04-30] MEDS: LYRICA PO SCH ×2 (08:54→21:14)
[2019-04-30] MEDS: DALIRESP PO SCH (08:54)
[2019-04-30] MEDS: ASPIRIN EC PO SCH (08:54)
[2019-04-30] MEDS: PERCOCET-10 PO PRN ×2 (09:04→22:12)
[2019-04-30] MEDS: ZOSYN 3.375 GM in NS 50 ML IV SCH ×3 (09:04→20:45)
[2019-04-30] MEDS: SPIRIVA INH SCH (09:22)
[2019-04-30 11:00] LABS: ALLEN TEST YES; BE 20.5 mmoll (-3.0-3.0); BLOOD TYPE ARTERIAL; HCO3-(ACT) 40.8 mmoll (20.0-26.0); METHB 0.9 % (0.0-1.5); O2(CT) 18.8 mL/dL (15.0-23.0); O2HB 92.4 % (95.0-99.0); PO2(98.6) 66 mmHg (60-100); SAMPLE BLOOD; SAO2 95.1 % (95.0-100.0); THB 14.5 g/dL (11.5-17.4); pH(98.6) 7.39 (7.35-7.45)
[2019-04-30 11:02] LABS: PCO2(98.6) 84 mmHg (35-45)
[2019-04-30 11:03] LABS: MODALITY CANNULA
[2019-04-30 12:43] LABS: HEMOGLOBIN A1C 7.1 % (4.8-6.0)
--- NOTE | 2019-04-30 13:55 | CONSULTATION ---
DATE OF CONSULTATION: 04/30/2019 IMPRESSION: 1. Cor pulmonale 2. Moderate to severe pulmonary hypertension probably related to chronic lung disease. 3. COPD requiring home oxygen. 4. Obstructive sleep apnea. Patient not utilizing CPAP for the last several weeks after relocating from [place] potentially aggravating her tendency for cor pulmonale. 5. Some element of pulmonary fibrosis. 6. Previous chronic cigarette use discontinued 7 years ago. 7. Obesity. 8. Type 2 diabetes mellitus with associated peripheral neuropathy. 9. Dyslipidemia. RECOMMENDATIONS: 1. Continue diuresis as she still manifests some signs of volume overload with neck vein distention consistent with significantly elevated central venous pressure. 2. Continue to treat for significant pulmonary disease and utilize BiPAP. 3. Pulmonary Medicine consultation and sleep medicine consultation will be very helpful. HISTORY: This 59-year-old -Luxembourger female with past history of COPD, obstructive sleep apnea, obesity, pulmonary hypertension, and cor pulmonale was admitted because of hypoxemia. She has been on home oxygen, and also on CPAP at night in the past for COPD and obstructive sleep apnea. She has also been on diuretic therapy for cor pulmonale now. She recently moved down here from [place]. In the transition, she has stopped using CPAP as it is "still packed up". She is trying to establish with primary care doctors in the area. She went for a clinic appointment and was noted to have hypoxemia after which she was referred for admission. She has had chronic shortness of breath that seems to have gotten somewhat worse of late, and some recent increase in tendency for lower extremity edema that is improving with diuresis. She is not aware of coronary disease and has no angina. She quit smoking 7 years ago after smoking probably 1 pack of cigarettes per day for many years. PAST MEDICAL HISTORY: 1. Chronic obstructive pulmonary disease. 2. Obstructive sleep apnea. 3. Obesity. 4. Type 2 diabetes mellitus with associated neuropathy. 5. Dyslipidemia. 6. Gastroesophageal reflux disease. PAST SURGICAL HISTORY: Includes previous section. ALLERGIES: She has no known drug allergies. MEDICATIONS PRIOR TO ADMISSION: As listed. SOCIAL HISTORY: She is single and disabled. She recently moved here from [place]. She has a fiancee still in [place]. She previously smoked 1 pack of cigarettes per day for more than 20 years, but discontinued this about 7 years ago. She drinks an occasional alcoholic beverage. FAMILY HISTORY: Negative for premature coronary disease. REVIEW OF SYSTEMS: Pulmonary: Noteworthy for chronic dyspnea which seems a bit worse of late. She denies cough. Gastrointestinal: Noncontributory. Constitutional: Noncontributory beyond history of present illness. Remainder of review of systems negative/noncontributory beyond history of present illness with 14 total systems reviewed. PHYSICAL EXAMINATION: General: This is an obese, middle-aged -Luxembourger female in no distress. Vital signs: Blood pressure 111/69, heart rate 92 and regular. Weight 199 pounds. HEENT: Extraocular movements intact. Mucous membranes are moist. Neck: Supple. Jugular venous distention is evident consistent with significantly elevated central venous pressure. There are no carotid bruits. Chest: Clear to auscultation. Cardiac: Exam reveals a regular rate and rhythm without appreciable murmur or gallop. Abdomen: Obese. Nontender. Extremities: Without edema. Neurologic: Reveals her to be alert and fully oriented. Speech is fluent. She moves all 4 extremities equally well. Skin: Warm and dry. Psychiatric: Reveals her mood to be appropriate. PERTINENT DATA: Twelve lead EKG demonstrates sinus tachycardia with biatrial enlargement and possible right ventricular hypertrophy. Echocardiography reports moderate tricuspid regurgitation with estimated systolic PA pressure of 70 mmHg consistent with moderate to severe pulmonary hypertension. Left ventricular systolic function is normal. There is abnormal septal motion consistent with right ventricular pressure/volume overload. The right ventricle is markedly dilated with moderately reduced right ventricular systolic function. LABORATORY DATA: White blood cell count 13.2, hematocrit 49.4, hemoglobin 13.7, and platelet count 367,000. Sodium 138, potassium 4.6, chloride 88, carbon dioxide 43, BUN 18, creatinine 0.6, glucose 186, and albumin 3.6. Chest CT angiography demonstrates no evidence of pulmonary embolus. There are described multiple areas of bilateral parenchymal fibrosis and plate like atelectasis as well as bilateral pleural effusions. cc: Mika Ramirez MD [facility]
--- NOTE | 2019-04-30 19:56 | PULMONOLOGY CONSULTATION ---
DATE: 04/30/2019 CHIEF COMPLAINT: Shortness of breath. HISTORY OF PRESENT ILLNESS: This is a 59-year-old female who recently moved here from [place]. She has a past medical history of CHF, obstructive sleep apnea, diabetes mellitus type 2, hyperlipidemia, GERD, and neuropathy. Recent chest x-ray impression revealed cardiomegaly with mild pulmonary edema, small pleural effusion. The patient states that she has previously been diagnosed with obstructive sleep apnea and was receiving CPAP therapy at home, but states her CPAP has been broken, with discontinued use. PAST MEDICAL HISTORY: 1. COPD on 3 L home oxygen. 2. Congestive heart failure. 3. Diabetes mellitus type 2. 4. Hyperlipidemia. 5. Hemorrhoids. 6. GERD. 7. Neuropathy. 8. Seasonal allergies. 9. Chronic arm rashes bilaterally. 10. Obstructive Sleep Apnea PAST SURGICAL HISTORY: section. SOCIAL HISTORY: Recently moved here from [place] approximately a month ago. No local physicians yet. On disability. Lives at home with her grandson. Ex-smoker, quit 7 years ago. Drinks a glass of wine. Two beers every couple of months. Denies illicit drug use. FAMILY HISTORY: Stroke and heart attack in her mother. ALLERGIES: No known drug allergies. HOME MEDICATIONS: Please see home reconciliation list. REVIEW OF SYSTEMS: A 10-point review of systems was conducted and is pertinent as listed within the HPI, otherwise noncontributory. PHYSICAL EXAMINATION: VITAL SIGNS: Temperature 98.5, pulse 84, respiratory rate 25, blood pressure 166/89, 02 saturation 96%, supplemental oxygen at 4 L per nasal cannula. GENERAL: This is a 59-year-old female sitting up in bed at the present time in no acute distress. HEENT: Head is atraumatic, normocephalic. Pupils equal, round and reactive. Moist mucous membranes. NECK: Supple. RESPIRATORY: Diminished breath sounds bilaterally in all lung cr. Nonlabored. CARDIOVASCULAR: S1 and S2 auscultated. No gallops, murmurs or rubs. ABDOMEN: Soft, nontender, distended. Positive bowel sounds in all 4 quadrants. EXTREMITIES: Without edema. NEUROLOGIC: Alert and oriented x3. Follows commands. SKIN: Warm, dry and intact except for a rash along both arms. DIAGNOSTIC DATA: Chest x-ray - Impression: Cardiomegaly with mild pulmonary edema and small pleural effusions. LABORATORY DATA: White blood cells 13.20, red blood cells 5.68, hemoglobin 13.7, hematocrit 49.4. Has a pH of 7.39, pCO2 of 84, pO2 of 66, HCO3 of 40.8, base excess of 20.5, oxyhemoglobin 92.4. Sodium is 138, potassium 4.6, chloride 88, carbon dioxide 43, BUN 18, creatinine 0.6, glucose 186. Hemoglobin A1c is 7.1. AST is 15, ALT 16. Total protein 7.4, albumin 3.8. ASSESSMENT/PLAN: 1. Acute on chronic hypercarbic, hypoxemic respiratory failure with a history of chronic obstructive pulmonary disease, on home oxygen at 3 L. Continue supplemental oxygen, bronchodilators, antibiotics and steroids as prescribed. 2. Congestive heart failure. Continue with Lasix as prescribed, IV. 3. Agree with the treatment plan regarding elevated D-dimer. Will obtain a CTA if not already done. 4. Diabetes mellitus type 2. Continue with pattern blood glucose checks and regular Humulin insulin as scheduled. 5. Continue deep venous thrombosis prophylaxis with Lovenox 40 mg subcutaneously as scheduled. Thank you for the courtesy of this consult. Dictated by PANCHITO Bojorquez for Aurora Matos MD cc: PANCHITO Bojorquez MD [facility]
[2019-05-01] MEDS: ZOSYN 3.375 GM in NS 50 ML IV SCH ×3 (02:55→11:16)
[2019-05-01] MEDS: DUONEB (A & A) INH SCH ×3 (04:03→12:31)
[2019-05-01] MEDS: LASIX IV SCH (04:50)
[2019-05-01] MEDS: SOLU-MEDROL IV SCH ×2 (04:50→11:16)
[2019-05-01 05:14] LABS: ALLEN TEST YES; BE 24.5 mmoll (-3.0-3.0); BLOOD TYPE ARTERIAL; METHB 0.9 % (0.0-1.5); O2(CT) 19.3 mL/dL (15.0-23.0); PO2(98.6) 98 mmHg (60-100); SAMPLE BLOOD; SAO2 98.6 % (95.0-100.0); THB 14.2 g/dL (11.5-17.4); pH(98.6) 7.39 (7.35-7.45)
[2019-05-01 05:20] LABS: MODALITY BI PAP; PCO2(98.6) 92 mmHg (35-45)
[2019-05-01 06:45] LABS: HEMATOCRIT 51.8 % (37.0-47.0); LYMPH# 0.41 X1000 (1.2-3.4); LYMPH% 3.5 % (20.5-51.1); MCV 88.7 FL (81-99); MONO# 0.53 X1000 (0.11-0.59); MONO% 4.5 % (1.7-9.3); MPV 11.6 FL (7.4-10.4); PLT 362 X1000 (130-400); RBC 5.84 XMIL (4.2-5.4); RDW 20.2 % (11.5-14.5); WBC 11.84 X1000 (4.8-10.8)
[2019-05-01 07:05] LABS: ESTIMATED GFR > 60
[2019-05-01 07:13] LABS: AGAP 10; ALB/GLOB RATIO 1.1; ALBUMIN 3.9 g/dL (3.5-5.0); ALKALINE PHOSPHATASE 63 U/L (32-104); BUN 19 mg/dL (8-22); CALCIUM 9.2 mg/dL (8.8-10.2); CHLORIDE 86 mmol/L (98-107); COSMO 281; CREATININE 0.7 mg/dL (0.5-0.9); GLUCOSE 153 mg/dL (70-104); GOT 13 U/L (10-30); GPT 20 U/L (10-36); POTASSIUM 4.9 mmol/L (3.5-5.1); SODIUM 138 mmol/L (136-145); TCO2 42 mmol/L (25-35); TOTAL BILIRUBIN 0.28 mg/dL (0.20-1.00); TOTAL PROTEIN 7.6 g/dL (6.3-8.3)
[2019-05-01] MEDS: HUMULIN R SUBQ SCH ×2 (07:25→11:23)
[2019-05-01 07:37] LABS: LYMPHS 5 % (21-51); MONO 2 % (1-9); SEGS 93 % (42-75)
[2019-05-01 07:38] LABS: ANISOCYTOSIS 1+; MICROCYTOSIS OCCASIONAL; POIKILOCYTOSIS OCCASIONAL; TARGET CELLS OCCASIONAL
[2019-05-01 08:39] VITALS: BP 133/89
[2019-05-01] MEDS: SPIRIVA INH SCH (08:53)
[2019-05-01] MEDS: LACTULOSE PO SCH (09:15)
[2019-05-01] MEDS: LIPITOR PO SCH (09:16)
[2019-05-01] MEDS: ASPIRIN EC PO SCH (09:16)
[2019-05-01] MEDS: DALIRESP PO SCH (09:16)
[2019-05-01] MEDS: COREG PO SCH (09:16)
[2019-05-01] MEDS: LOVENOX SUBQ SCH (09:16)
[2019-05-01] MEDS: LYRICA PO SCH (09:16)
[2019-05-01] MEDS: PERCOCET-10 PO PRN (09:24)
[2019-05-01] MEDS: ZYVOX 600 MG/D5W 600 MG/300 ML IVPB IV SCH ×2 (09:28→11:16)
[2019-05-01 12:15] LABS: ALLEN TEST YES; BE 24.4 mmoll (-3.0-3.0); BLOOD TYPE ARTERIAL; HCO3-(ACT) 43.8 mmoll (20.0-26.0); METHB 0.7 % (0.0-1.5); O2(CT) 19.1 mL/dL (15.0-23.0); PO2(98.6) 65 mmHg (60-100); SAMPLE BLOOD; SAO2 94.6 % (95.0-100.0); THB 14.8 g/dL (11.5-17.4); pH(98.6) 7.38 (7.35-7.45)
[2019-05-01 12:19] LABS: MODALITY CANNULA; PCO2(98.6) 95 mmHg (35-45)
--- NOTE | 2019-05-01 12:39 | DISCHARGE SUMMARY ---
ADMISSION DATE: 04/27/2019 DISCHARGE DATE: 05/01/2019 PCP: She has no primary care physician yet. 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 States on medical history that she has a history of congestive heart failure, diabetes mellitus type 2, hyperlipidemia, gastroesophageal reflux disease, and neuropathy. Apparently, she has been having some shortness of breath, which has been progressive for the last few weeks. No excessive shortness of breath this morning, but was concerned. Attempted to go to primary care, found to have her O2 sats low in the emergency room and then she had gone to her primary care physician, but was unclear if she went there or not. At any rate, EMS was called, O2 sats were in the 40s. She felt it was partly related to her CPAP that was not working at this point. She is normally on 3 L of O2 because of her COPD, and she had O2 saturations of 90% when she was on her 5 L. Denies fever or chills, pleuritic pain, squeezing chest pain. No increase in pedal edema. PAST MEDICAL HISTORY: 1. COPD, on 3 L home O2. 2. Congestive heart failure, likely getting an echocardiogram, though that was the plan. 3. Diabetes mellitus, type 2. 4. Hyperlipidemia. 5. Hemorrhoids. 6. Gastroesophageal reflux disease. 7. Diabetic neuropathy. 8. Seasonal allergies. 9. Bilateral arm rashes that are chronic, and she put some topical cream on them. ADMISSION DIAGNOSES: 1. Acute on chronic hypercarbic hypoxemic respiratory failure, with history of chronic obstructive pulmonary disease, already on 3 L of O2. She has been on 3 L for 12 years and apparently uses CPAP at home. 2. Obstructive sleep apnea. Supposed to be on CPAP. 3. Congestive heart failure, by her report. We did a pulmonary arteriogram on 04/28. No evidence of acute pulmonary embolism, although evaluation is somewhat limited. She had some ground-glass infiltrates in the bases, bilateral pleural effusion, and diffuse pleural calcifications in the right hemothorax. She had echocardiogram with Doppler on 04/27. Study was very abnormal, right ventricle markedly dilated and creating flattening of the interventricular septum, both during systole and diastole suggesting significant pulmonary hypertension, acute systolic pressure overload, right systolic function moderately impaired. Tricuspid valve, moderate degree of regurgitation. Estimated pulmonary pressure at 70 mmHg. Aortic valve was normal. Left ventricle normal function. The tissue Doppler of the septal and lateral mitral annulus averages 10 cm. DISPOSITION: The patient wanted to go home and, in fact, was kind of insisting to go home. I explained that she can, we will put her back on 3 L, very important she follow up with Cardiology and Pulmonary, particularly Pulmonary, and that she needs to make sure her CPAP is functioning. CTA did not show any evidence of a pulmonary emboli so we will discharge her home on 05/01/2019. DISCHARGE INSTRUCTIONS: On discharge she was instructed to wear her CPAP at home. She is on aspirin 81 mg a day, Lipitor 20 mg a day, Coreg 3.125 mg b.i.d. I am going to give her Lasix to take p.o. twice a day. I did not see any evidence of true pneumonia. She can stop her antibiotics. She will be on her Lyrica 150 mg b.i.d. She takes Daliresp 500 mcg p.o. daily, and Spiriva 2 puffs daily. I think she takes Lipitor 20 mg a day. She puts on ammonium lactate on her rash on her arms, and she is on beta methadone cream, which is Diprosone, as well, b.i.d. She takes calcium carbonate 500 mg daily, and camphor eucalyptus vaporizing steam, she uses. She is on Coreg 3.25 mg b.i.d., cetirizine 10 mg a day, cholecalciferol, vitamin D3 5000 units daily, Temovate 0.05% cream twice a day, vitamin B12 1000 mcg p.o. daily, Colace 100 mg daily, Elda 180 mg daily, fluocinonide 0.05% cream, which is Lidex cream, continue. She is on Trelegy, which is fluticasone, umeclidinium and vilanterol combination; it is Ellipta 100/62.5/25, to use that daily. Furosemide 20 mg a day. Lactulose 10 g p.o. t.i.d. Magnesium oxide 400 mg a day. Metformin 500 mg at breakfast. Nasonex spray. Lyrica 150 mg a day. Zantac 150 mg b.i.d. Tiotropium inhaler 2 puffs daily. cc: Marcellus Clemente MD
== END 2019-05-01 13:46 | disposition home health service (06) | DRG 291 ==
LOC: P.ED 10:57 → SUATTDRO 13:28 → P.ICU 13:28 → 2N 04-29 16:14
PROVIDERS: ATTEND Emergency Medicine

== ENCOUNTER 2019-07-04 18:40 | Observation (INO) ==
--- NOTE | 2019-07-04 19:57 | Diag Imaging Result Doc PS360 ---
EXAM: CHEST-2 VIEWS HISTORY: syncope TECHNIQUE: Two views COMPARISON: 04/30/2019 FINDINGS: Poor inspiratory effort. The heart is not enlarged. There are small pleural effusions. There are increased interstitial markings in the mid and lower lungs. The vessels aren't distended. There could be underlying infiltrates. IMPRESSION: Cardiomegaly with pulmonary edema and small pleural effusions. There is also basilar atelectasis. Follow-up PA and lateral recommended. Electronically signed by Joshua Rushing 07/04/2019 7:55 PM
[2019-07-04 20:21] LABS: URINE SOURCE CLEAN CATCH
[2019-07-04 20:28] LABS: BASO# 0.02 X1000 (0.0-0.2); BASO% 0.1 % (0.0-0.8); EOS# 0.11 X1000 (0.0-0.7); EOS% 0.8 % (0.0-10.0); HEMATOCRIT 49.4 % (37.0-47.0); LYMPH# 1.14 X1000 (1.2-3.4); LYMPH% 8.3 % (20.5-51.1); MCH 26.7 PG (27-31); MCHC 28.3 g/dL (33-37); MCV 94.1 FL (81-99); MONO# 0.82 X1000 (0.11-0.59); MONO% 5.9 % (1.7-9.3); NEUT# 11.71 X1000 (1.4-6.5); NEUT% 84.9 % (42.2-75.2); PLT 247 X1000 (130-400); PROTIME 13.3 Seconds (11.0-16.0); RBC 5.25 XMIL (4.2-5.4); RDW 18.6 % (11.5-14.5)
[2019-07-04 20:29] LABS: PTT 25.5 Seconds (22.3-41.8)
[2019-07-04 20:33] LABS: BILIRUBIN URINE NEGATIVE (NEGATIVE); BLOOD URINE NEGATIVE (NEGATIVE); COLOR STRAW; GLUCOSE URINE NEGATIVE (NEGATIVE); KETONE URINE NEGATIVE (NEGATIVE); LEUKOCYTES URINE NEGATIVE (NEGATIVE); NITRITE URINE NEGATIVE (NEGATIVE); PROTEIN URINE NEGATIVE (NEGATIVE); TURBIDITY URINE CLEAR (CLEAR); UROBILINOGEN URINE NORMAL (NORMAL)
[2019-07-04 20:34] LABS: UR EPITHELIAL CELLS <10 /HPF (<10); URINE BACTERIA NEGATIVE /HPF; URINE RBC <10 /HPF (<10); URINE WBC <10 /HPF (<10)
[2019-07-04 20:52] LABS: AGAP 13; ALB/GLOB RATIO 1.5; ALBUMIN 4.1 g/dL (3.5-5.0); ALKALINE PHOSPHATASE 78 U/L (32-104); BUN 19 mg/dL (8-22); CALCIUM 9.2 mg/dL (8.8-10.2); CHLORIDE 94 mmol/L (98-107); COSMO 292; CREATININE 0.6 mg/dL (0.5-0.9); ESTIMATED GFR > 60; GLUCOSE 155 mg/dL (70-104); GOT 17 U/L (10-30); GPT 17 U/L (10-36); POTASSIUM 4.9 mmol/L (3.5-5.1); SODIUM 144 mmol/L (136-145); TCO2 37 mmol/L (25-35); TOTAL BILIRUBIN 0.16 mg/dL (0.20-1.00); TOTAL PROTEIN 6.8 g/dL (6.3-8.3)
[2019-07-04] MEDS ORDERED: LASIX IV ONE (21:52)
[2019-07-04] MEDS ORDERED: LAC-HYDRIN 12% LOTION TOP SCH (22:00)
[2019-07-04] MEDS: DUONEB (A & A) INH SCH (23:58)
[2019-07-05] MEDS ORDERED: PATIENT'S OWN MED TOP SCH (00:15)
[2019-07-05] MEDS ORDERED: ZOFRAN IV PRN (00:23)
[2019-07-05] MEDS ORDERED: TYLENOL PO PRN (00:25)
--- NOTE | 2019-07-05 00:50 | EKG Report ---
Test Performed on : 07/04/2019 9:07:08 PM Test Reason : CHF Exacerbation Blood Pressure : / mmHG Vent. Rate : 101 BPM Atrial Rate : 101 BPM P-R Int : 146 ms QRS Dur : 064 ms QT Int : 350 ms P-R-T Axes : 069 102 022 degrees QTc Int : 453 ms Sinus tachycardia. Right atrial enlargement Right ventricular hypertrophy T wave abnormality, consider anterior ischemia Abnormal ECG When compared with ECG of 27-APR-2019 14:46, No significant change was found Unconfirmed Result
[2019-07-05] MEDS: LASIX IV SCH ×3 (01:13→23:59)
[2019-07-05] MEDS: DUONEB (A & A) INH SCH ×6 (03:24→23:12)
--- NOTE | 2019-07-05 03:43 | EKG Report ---
Test Performed on : 07/05/2019 02:57:51 AM Test Reason : jaw pain Blood Pressure : / mmHG Vent. Rate : 097 BPM Atrial Rate : 097 BPM P-R Int : 132 ms QRS Dur : 076 ms QT Int : 354 ms P-R-T Axes : 073 101 017 degrees QTc Int : 449 ms Normal sinus rhythm. Right atrial enlargement Right ventricular hypertrophy with repolarization abnormality Nonspecific T wave abnormality Abnormal ECG When compared with ECG of 04-JUL-2019 21:07, (Unconfirmed) No significant change was found Unconfirmed Result
[2019-07-05 04:28] LABS: BASO# 0.01 X1000 (0.0-0.2); BASO% 0.1 % (0.0-0.8); HEMATOCRIT 50.6 % (37.0-47.0); HEMOGLOBIN 13.7 g/dL (12.0-16.0); IMM GRAN# 0.03 X1000 (0.0-0.04); IMM GRAN% 0.2 % (0.0-0.5); LYMPH# 0.78 X1000 (1.2-3.4); LYMPH% 5.7 % (20.5-51.1); MCH 25.1 PG (27-31); MCHC 27.1 g/dL (33-37); MCV 92.7 FL (81-99); MONO# 0.34 X1000 (0.11-0.59); MONO% 2.5 % (1.7-9.3); MPV 11.1 FL (7.4-10.4); NEUT# 12.44 X1000 (1.4-6.5); NEUT% 91.5 % (42.2-75.2); PLT 222 X1000 (130-400); RBC 5.46 XMIL (4.2-5.4); RDW 18.4 % (11.5-14.5)
--- NOTE | 2019-07-05 04:35 | HISTORY AND PHYSICAL ---
ADDENDUM: PRIMARY CARE PROVIDER: No primary care provider. HISTORY OF PRESENT ILLNESS: Chayo Welch is a 59-year-old woman with past medical history of heart failure, COPD on home O2 of 2 L, type 2 diabetes, hypertension, who comes in today because of PND and orthopnea. She says she has a longstanding history of chronic dyspnea and was discharged from this facility just over a month ago and was sent home on over 30 days supply of systemic oral steroids. She denies any bleeding from any orifice, any change in her home medications. She reports that she has had upper respiratory illness when she went to [place] a few weeks ago and has been coughing up yellowish-brownish sputum for the last couple days, but no fever or chills. No leg swelling. Denies any chest pain. Her white count is only notable for 14,000 and this white count is up from 11,000. Chest film showed increased vascular markings, somewhat poor inspiratory effort with cardiomegaly, possible blunting of both costophrenic angles. PHYSICAL EXAMINATION: VITAL SIGNS: Her blood pressure is 111/70, heart rate is 111, respiratory rate is 19, temperature is 98.1 degrees. GENERAL: This is a morbidly obese woman. NECK: Noticeable JVD or hepatojugular reflux. CHEST: Bibasilar crepitations heard. CARDIOVASCULAR: S1, S2 heard. No gallops, murmurs, rubs. No edema. I suspect patient may have CHF with a component of a possible COPD exacerbation and/or pneumonia which should be treated if CT thorax ordered tonight. cc: Jasen Franco MD
[2019-07-05 04:39] LABS: HEMOGLOBIN A1C 7.7 % (4.8-6.0)
[2019-07-05 05:05] LABS: AGAP 13; BUN 18 mg/dL (8-22); CALCIUM 9.6 mg/dL (8.8-10.2); CHLORIDE 86 mmol/L (98-107); CK PROFILE 64 U/L (24-173); COSMO 292; CREATININE 0.8 mg/dL (0.5-0.9); ESTIMATED GFR > 60; GLUCOSE 293 mg/dL (70-104); MAGNESIUM 1.6 mg/dL (1.5-2.7); POTASSIUM 5.1 mmol/L (3.5-5.1); SODIUM 140 mmol/L (136-145); TCO2 41 mmol/L (25-35)
--- NOTE | 2019-07-05 06:49 | PROVIDER DOCUMENTATION ---
This chart was entered by Antonio Beavers Scribe, acting as scribe for Noble Sevilla MD. HPI-General Adult - General Chief Complaint: Cough Stated Complaint: "NOT FEELING RIGHT" Time Seen by Provider: 07/04/19 19:04 Source: patient Allergies/Adverse Reactions: Patient Allergies Allergy/AdvReac Type Severity Reaction Status Date / Time No Known Allergies Allergy Verified 04/27/19 11:17 Home Medications: Home Medication List Medication Instructions Recorded Confirmed Last Taken Type ATORVAstatin [Lipitor] 20 mg PO DAILY 04/27/19 07/04/19 Unknown History Albuterol 2.5MG/Ipratrop 0.5MG 3 ml INH RTQ4H 04/27/19 07/04/19 Unknown History [Duoneb (A & A)] Albuterol Sulfate [Albuterol 8.5 gm INHALATION Q4-6H PRN PRN 04/27/19 07/04/19 U nknown History Sulfate Hfa] Ammonium Lactate 140 gm TOPICAL DIRECTED 04/27/19 07/04/19 Unknown History Aspirin EC 81 mg PO DAILY 04/27/19 07/04/19 Unknown History Azelastine/Fluticasone [Dymista 23 gm NS BID 04/27/19 07/04/19 Unknown History Nasal Vaughn] Betamethasone Dip 0.05% Cream 15 gm TOP BID 04/27/19 07/04/19 Unknown History [Diprosone 0.05% Cream] Calcium Carbonate [Calcium] 500 mg PO DAILY 04/27/19 07/04/19 Unknown History Camphor/Eucalyptus/Menthol 236 ml MC DIRECTED 04/27/19 07/04/19 Unknown History [Vaporizing Steam 6.2% Liquid] Cetirizine HCl 10 mg PO DAILY 04/27/19 07/04/19 Unknown History Cholecalciferol (Vit D3) [Vitamin 5,000 unit PO DAILY 04/27/19 07/04/19 Unknown History D] Clobetasol Prop 0.05% Cream 1 applicatn TOP BID 04/27/19 07/04/19 Unknown History [Temovate 0.05% Cream] Cyanocobalamin (Vitamin B-12) 1,000 mcg PO DAILY 04/27/19 07/04/19 Unknown History [Vitamin B12] Cyclobenzaprine [Flexeril] 10 mg PO ORDERED 04/27/19 07/04/19 Unknown History Docusate Sodium 100 mg PO DAILY 04/27/19 07/04/19 Unknown History Fexofenadine [Elda] 180 mg PO DAILY 04/27/19 07/04/19 Unknown History Fluocinonide 0.05% Cream [Lidex 15 gm .SEE ORDER DAILY 04/27/19 07/04/19 Unknown History 0.05% Cream] Fluticasone/Umeclidin/Vilanter 1 ea INHALATION DAILY 04/27/19 07/04/19 Unknown History [Trelegy Ellipta 100-62.5-25] Furosemide 20 mg PO DAILY 04/27/19 07/04/19 Unknown History Hydrocortisone 2.5% Cream 1 applicatn NV BID 04/27/19 07/04/19 Unknown History [Anusol-Hc Cream] Hydroxyzine HCl 25 mg PO QHS 04/27/19 07/04/19 Unknown History Lactulose 10 gm PO TID 04/27/19 07/04/19 Unknown History Magnesium Carb/Aluminum Hydrox [Sm 1 ea PO DAILY 04/27/19 07/04/19 Unknown History Antacid Ex-Str Tab Chew] Magnesium Oxide 400 mg PO DAILY 04/27/19 07/04/19 Unknown History Metformin [Glucophage] 500 mg PO WBREAKFAST 04/27/19 07/04/19 Unknown History Mometasone Nasal Vaughn [Nasonex 1 spray INTRANASAL DAILY 04/27/19 07/04/19 Unknown History Nasal Vaughn] Pregabalin [Lyrica] 150 mg PO DAILY 04/27/19 07/04/19 Unknown History Ranitidine [Zantac] 150 mg PO BID 04/27/19 07/04/19 Unknown History Roflumilast [Daliresp] 500 mcg PO DAILY 04/27/19 07/04/19 Unknown History Tiotropium Maramec Inhaler 2 puff PO DAILY 04/27/19 07/04/19 Unknown History [Spiriva] Triamcinolone 0.1% Oint [Kenalog 1 applicatn TOP TID 04/27/19 07/04/19 Unknown History 0.1% Ointment] Carvedilol 3.125 mg PO BID 30 Days #60 tab 05/01/19 07/04/19 Unknown Rx Potassium Chloride 20 meq PO DAILY 30 Days #30 05/01/19 07/04/19 Unknown Rx tab.er.prt - History of Present Illness -Gen Adult Nature of Presenting Problems: Pt is a 59 y/o F presents to the ED stating she fell out. She denies injury. She says her eyes were open but she could not control what was going on. She reports a hx of COPD and generalized abdominal pain. Location of Pain/Injury: reports: none Severity: reports: mild Onset/Duration: reports: just prior to arrival Timing: reports: gone now Context/Activities at Onset: reports: none Modifying Factors: improves with: nothing Associated Symptoms: reports: syncope. denies: diaphoresis, diarrhea, EENT symptoms, fever/chills, shortness of breath, weakness, trouble walking Similar Symptoms Previously?: No Recently seen or treated by another doctor?: No Review of Systems - Adult - REVIEW OF SYSTEMS - ADULT Constitutional: denies: chills, fever Eyes: reports: no symptoms reported Ears, Nose, Mouth & Throat: reports: no symptoms reported Cardiovascular: denies: chest pain, edema, palpitations Respiratory: denies: cough, shortness of breath, wheezing Gastrointestinal: reports: abdominal pain. denies: nausea, vomiting Genitourinary: denies: dysuria, flank pain, hematuria Musculoskeletal: denies: back pain, neck pain Integumentary: reports: no symptoms reported Neurological: reports: syncope. denies: dizziness/vertigo, headache/migraines, loss of balance, numbness Psychiatric: reports: no symptoms reported Endocrine: reports: no symptoms reported Hematologic/Lymphatic: reports: no symptoms reported Allergic/Immunologic: reports: no symptoms reported All Other Systems: Reviewed and Negative Past History - Adult - PAST MEDICAL HISTORY-ADULT Review of Records: reports: Old Records Reviewed, Nursing Assessment Review, Medications Reviewed Major Childhood Illnesses: reports: denies history Cardiovascular: reports: denies history Respiratory: reports: COPD Gastrointestinal: reports: denies history Obstetrical/Gynecological: reports: denies history Genitourinary: reports: denies history Musculoskeletal: reports: denies history Neurological: reports: denies history Endocrine/Immune: reports: denies history Other Conditions: reports: denies history - IMMUNIZATION STATUS Childhood Immunizations: See Nurse Assessment Flu Vaccine: See Nurse Assessment - FAMILY HISTORY Family History: reviewed, not pertinent - SOCIAL HISTORY Smoking: non-smoker, quit less than 1 year Substance Use: alcohol Alcohol Use Frequency: occasionally Physical Exam-General - PHYSICAL EXAM-ADULT Initial Vital Signs Reviewed: Yes - CONSTITUTIONAL General Appearance: appears well, alert, no apparent distress - EYES Eyes: PERRL/EOMI, pink conjunctivae - HEAD, EARS, NOSE, MOUTH & THROAT HENMT: moist mucous membranes, normal ENT inspection - NECK Neck: non-tender, full range of motion, supple, normal inspection - RESPIRATORY Respiratory: lungs clear, normal breath sounds, no pleuratic chest pain, no respiratory distress, no accessory muscle use - CARDIOVASCULAR Cardiovascular: normal peripheral pulses, tachycardia - GASTROINTESTINAL (ABDOMEN) Abdominal Exam: normal bowel sounds, soft, tenderness (generalized tenderness) - MUSCULOSKELETAL Back Exam: normal inspection, no CVA tenderness, no vertebral tenderness Extremity: normal range of motion, non-tender, normal gait, normal inspection, no pedal edema - SKIN Integumentary: normal color, normal turgor, warm/dry - NEUROLOGIC Neurologic: grossly normal, no motor/sensory deficits - PSYCHIATRIC Psych/Mental Status: normal mood/affect, normal thought content, normal thought process, oriented x 3 Progress - PLAN OF CARE/RESULTS Progress/Plan/Lab Results: Vital Signs - 8 hr 07/04/19 18:53 Temperature 98.1 F Pulse Rate 111 H Respiratory Rate 19 Blood Pressure 119/81 O2 Sat by Pulse Oximetry 86 L Result Diagrams: 07/05/19 04:17 07/05/19 04:17 - EKG 1 Time of EKG reading by physician:: 21:07 EKG Read and Signed by:: Noble Sevilla EKG Interpretation (*Must complete 3 of following elements*): Abnormal Rate: 101 Rhythm: Sinus Tach Comments: Right atrial enlargement, Right venticular hypertophy, T Wave abnormality - XRAY 1 XRAY Study: Chest Impression: Abnormal ( EXAM: CHEST-2 VIEWS HISTORY: syncope TECHNIQUE: Two views COMPARISON: 04/30/2019 FINDINGS: Poor inspiratory effort. The heart is not enlarged. There are small pleural effusions. There are increased interstitial markings in the mid and lower lungs. The vessels aren't distended. There could be underlying infiltrates. IMPRESSION: Cardiomegaly with pulmonary edema and small pleural effusions. There is also basilar atelectasis. Follow-up PA and lateral recommended. Electronically signed by Joshua Rushing 07/04/2019 7:55 PM [id number]/04/[id number]), See EMR Report - CONSULTS/PCP/HOSPITALIST Notification #1 *Consult/PCP/Hospitalist*: Hospitalist- Dr Franco called at 2112 Time Discussed: 21:20 Reason/Comments: admission Consult Disposition: Will see in ED Departure - Departure Date of Disposition Decision: 07/04/19 Time of Disposition Decision: 21:11 DIAGNOSIS: Syncope, Heart failure Disposition: ADMITTED INPATIENT 09 Certified Medical Emergency: Emergent Condition: Serious - Critical Care Note This patient required my direct & personal management of CC.: No Attestation - Physician/ BRANDO Attestation Patient care was provided by Advanced Practice Provider:: No The physician spent face to face time with patient:: Yes Advanced Practice Provider documentation review:: Supervising physician onsite and consulted in the evaluation and care of this patient. The physician did have a face to face encounter with the patient. This chart was documented by the indicated scribe, (Antonio Beavers Scribe) and accurately reflects the services I performed and decisions made by me, Noble Sevilla MD, as attested by the provider's signature.
[2019-07-05] MEDS: HUMULIN R SUBQ SCH ×4 (06:51→21:41)
--- NOTE | 2019-07-05 07:03 | Diag Imaging Result Doc PS360 ---
CT THORAX W/O CONTRAST - 07/04/2019 INDICATION: dyspnea ? PNA vs CHF COMPARISON: 07/04/2019, 04/28/2019 FINDINGS: There is no adenopathy. There is significant cardiomegaly. There are stable significant calcified pleural plaques unilaterally of the right thorax. Upper abdominal images are unremarkable. There are trace bilateral pleural effusions. There is stable linear scarring in the right lung from the previous pleural injury. There is hazy interstitial pulmonary edema bilaterally. The airways are grossly clear. There is moderate COPD. IMPRESSION: Congestive heart failure. COPD. Right-sided fibrothorax with pulmonary scarring. This exam was performed using automated exposure control, adjustment of mA or kV according to patient size, and/or use of iterative reconstruction technique Electronically signed by Roderick Hooks 07/05/2019 7:01 AM
--- NOTE | 2019-07-05 08:20 | Diag Imaging Result Doc PS360 ---
ABDOMEN FLAT/UPRIGHT - 07/04/2019 INDICATION: Abd. Distention,Constipation COMPARISON: None FINDINGS: There are bilateral pleural effusions. There is perhaps mild constipation in the transverse colon. Otherwise no bowel obstruction or free air. No abnormal calcifications in the abdomen. IMPRESSION: Perhaps mild constipation, but no acute disease. Electronically signed by Roderick Hooks 07/05/2019 8:18 AM
--- NOTE | 2019-07-05 08:38 | Diag Imaging Result Doc PS360 ---
EXAM: FOOT COMPLETE LEFT INDICATION: Fall, Left Foot Pain TECHNIQUE: 3 views COMPARISON: None. FINDINGS: There is mild degenerative arthropathy at the first MTP joint. There is no discrete fracture, dislocation, or significant intrinsic osseous lesion, otherwise. There is mild soft tissue edema at the dorsum of the foot. IMPRESSION: Soft tissue edema but no evidence of acute osseous abnormality by plain radiograph. Electronically signed by Gino Collins 07/05/2019 8:36 AM
--- NOTE | 2019-07-05 08:41 | HISTORY AND PHYSICAL ---
PRIMARY CARE PROVIDER: The patient does not have a primary care provider. DATE AND TIME: 07/04/2019 at 2230. CHIEF COMPLAINT: Shortness of breath and fall. HISTORY OF PRESENT ILLNESS: Ms. Welch is a 59-year-old female with a past medical history most notable for COPD, on home oxygen, congestive heart failure, diabetes mellitus, hypertension, hyperlipidemia, and diabetic neuropathy. Ms. Welch was admitted to our facility last month. She had recently moved here from [place] back in, I believe it was October or November. When she was discharged from our facility, unfortunately she was not able to follow up with Cardiology or Pulmonology or with obtaining a primary care physician. She did state that she had to return to [place] to handle a few things, and has now come back. She reports that over the past few weeks, she has had progressively worsening shortness of breath. She has also had some upper respiratory illness with sinus congestion, drainage, and a productive cough. She also reports that she feels she has some swelling in her face and her abdomen, though does not have any swelling in her extremities. She is reporting worsening shortness of breath as well as exertional dyspnea. She also reports orthopnea and paroxysmal nocturnal dyspnea. She has been reporting some constipation as well as some bloody stools, which I do believe is hemorrhoids per her description. The patient states she has a history of hemorrhoids, and since she has been constipated and having to strain to have a bowel movement, she has noticed some bright red blood streaked in her stool, as well as on the toilet paper when she wipes. She also reports that just prior to coming to the ER, she was walking through her house and did get kind of lightheaded, and this caused her to fall to the floor, though she states that she did not completely go out. She does remember the entire fall. She was able to catch herself, and did not incur injury. She denies any injury or pain at this time. She denies hitting her head or any loss of consciousness. She also denies any headache, chest pain, abdominal pain, nausea, or vomiting. She denies any dysuria or urinary frequency. She denies any pain, other than what is related to her diabetic neuropathy, or any numbness, tingling, or swelling in her extremities. She also denies any fever, body aches, or chills. Upon evaluation in the ER, the patient does appear to have some slight maybe swelling in her face, though this is not any swelling around her lips or tongue. This does not appear to be angioedema. This is more like in her cheeks. She also does have a distended abdomen as well. She does appear to be slightly dyspneic, but is not tachypneic. She is not in any respiratory distress. She did have some mild leukocytosis with a white blood cell count of 13,800. Cardiac enzymes have been negative. ProBNP was slightly elevated at 347. She did have some JVD noted upon examination, with a positive hepatojugular reflex. Urinalysis was clear for any signs of infection. Chest x- ray did show cardiomegaly with pulmonary edema and some small pleural effusions. We also did perform a CT thorax without contrast, which did show congestive heart failure, COPD, and right- sided fibrothorax with pulmonary scarring. We are awaiting Radiology over-read of the left foot x- ray and an abdominal x-ray, though the abdominal x-ray does appear to have constipation noted. When the patient did have her fall prior to arrival, she already has had a previous left foot injury, and was complaining of some pain upon palpation of the dorsal portion of her left foot. We have ordered an x-ray for further evaluation of this. Though other than her left foot tenderness, she denied any other pain or injuries. At this time, the patient will be placed inpatient admission for CHF exacerbation. PAST MEDICAL HISTORY: 1. COPD, on 3 L home oxygen. 2. Congestive heart failure. 3. Diabetes mellitus type 2. 4. Hyperlipidemia. 5. Hemorrhoids. 6. Gastroesophageal reflux disease. 7. Diabetic neuropathy. 8. Seasonal allergies. 9. Reported chronic rash to her bilateral arms. 10. Chronic problems with constipation. 11. Obstructive sleep apnea. She is supposed to wear CPAP at night, though she states her CPAP machine is broken at this time and she does need a new one. PAST SURGICAL HISTORY: section. SOCIAL HISTORY: The patient did just move here from [place] a few months ago. She was supposed to be referred to Pulmonology, Cardiology, and a primary care provider upon discharge, though unfortunately she was not able to have this set up yet. She is on disability. She did just recently return from a trip to [place]. 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 She is a former smoker. She quit smoking 7 years ago. She reportedly drinks a glass of wine or a beer or two every couple of months, though this is not very often. There is no known history of illicit drug use. FAMILY HISTORY: Her mother had a stroke and a heart attack at age 79. ALLERGIES: The patient has no known allergies. HOME MEDICATIONS: 1. DuoNeb treatments 3 mL inhaled 4 times a day. 2. Ammonium lactate 140 grams topically as directed. 3. Aspirin 81 mg p.o. daily. 4. Lipitor 20 mg p.o. daily. 5. Dymista nasal spray 23 grams intranasally b.i.d. 6. Betamethasone 0.05% cream, apply topically to affected area twice daily as directed. 7. Calcium carbonate 500 mg p.o. daily. 8. Vaporizing steam 6.2% liquid, use as directed. 9. Coreg 3.125 mg p.o. b.i.d. 10. Cetirizine 10 mg p.o. daily. 11. Vitamin D 5000 units p.o. daily. 12. Temovate 0.05% cream 1 application topically b.i.d. 13. Vitamin B12, 1000 mcg p.o. daily. 14. Flexeril 10 mg p.o. as ordered. 15. Docusate sodium 100 mg p.o. daily. 16. Elda 180 mg p.o. daily. 17. Lidex 0.05% cream, use as directed. 18. Trilogy Ellipta 100/62.5/25 one dose inhaled daily. 19. Furosemide 20 mg p.o. daily. 20. Anusol HC cream 1 application per rectum b.i.d. 21. Hydroxyzine 25 mg p.o. at bedtime. 22. Lactulose 10 grams p.o. t.i.d. 23. SM antacid EX-STR tablet chewable 1 p.o. daily. 24. Magnesium oxide 400 mg p.o. daily. 25. Metformin 500 mg p.o. with breakfast. 26. Nasonex nasal spray 1 spray intranasally daily. 27. Potassium chloride 20 mEq p.o. daily. 28. Zantac 150 mg p.o. b.i.d. 29. Daliresp 500 mcg p.o. daily. 30. Spiriva 2 puffs p.o. daily. 31. Kenalog 0.1% ointment 1 application topically t.i.d. DIAGNOSTIC DATA: White blood cell count is 13,800, hemoglobin 14, hematocrit 49.4, platelet count is 247,000. PT 13.3, INR 1, PTT is 25.5. Sodium 144, potassium 4.9, chloride 94, serum bicarb is 37, BUN 19, creatinine 0.6, GFR greater than 60, glucose 155, calcium 9.2, magnesium 1.6. Liver function tests within normal limits. CK 64, troponin less than 0.01. ProBNP is 347. Urinalysis was negative for any protein, glucose, ketones, blood, nitrites, leukocytes, white blood cells, or bacteria. EKG showed sinus tachycardia with right atrial enlargement and right ventricular hypertrophy at a rate of 101, QTc of 453. Chest x-ray did show cardiomegaly with pulmonary edema and pleural effusions. We also did perform a CT thorax without contrast, which did show congestive heart failure, COPD, and a right-sided fibrothorax with pulmonary scarring. We are awaiting radiologist impression of a left foot x-ray. We also are awaiting radiologist impression of an abdominal x-ray, though it does appear that the patient has constipation. PHYSICAL EXAMINATION: VITAL SIGNS: Temperature 98.1 degrees, heart rate 96, respirations 20, blood pressure is 123/85, oxygen saturation is 94% on nasal cannula at 3 L. GENERAL: Ms. Welch is a very pleasant, 59-year-old, female. She was resting in the ER stretcher. She was in no acute distress. She was awake, alert, and able to answer questions appropriately. HEENT: Head is atraumatic, normocephalic. Pupils are equal, round, reactive to light, were 3 mm bilaterally and brisk. Oral mucosa is moist. Oropharynx is clear. NECK: Supple. Trachea midline. The patient does have JVD noted upon examination. She did have positive hepatojugular reflex. CARDIOVASCULAR: The patient has S1, S2 present. No murmurs, gallops, rubs appreciated. Regular rate and rhythm. PULMONARY: The patient has symmetrical chest expansion bilaterally. The patient did have clear lung sounds in upper lung cr, though did have crackles noted in bilateral bases. ABDOMEN: The patient's abdomen is soft, though is distended. She does not report any tenderness upon palpation. Bowel sounds are present in all 4 quadrants. EXTREMITIES: No cyanosis or edema noted. Pulse, motor, and sensory are intact in all extremities. Radial and pedal pulses are 2+ bilaterally. INTEGUMENTARY: The patient's skin color is normal for her race. It is dry and intact. NEUROLOGICAL: The patient is alert and oriented to person, place, time, and situation. She is able to move all extremities. There are no focal neurological deficits noted. ASSESSMENT AND PLAN: 1. Acute on chronic congestive heart failure exacerbation. For further treatment and evaluation of this, we will go ahead and place her with intravenous Lasix 40 mg every 12 hours. Will continue with her regularly prescribed cardiac medications. Will also do a series of cardiac enzymes. Repeat an electrocardiogram in the morning. We have placed a consult with Cardiology. We will await their evaluation and further recommendations for management. 2. Chronic obstructive pulmonary disease and chronic hypercapnic/hypoxic respiratory failure. Will continue with the patient's supplemental oxygen and scheduled DuoNeb treatments. 3. Hypertension. Will continue her regularly prescribed antihypertensive. 4. Hyperlipidemia. Will continue with her atorvastatin. 5. Diabetes mellitus. We have placed the patient with sliding scale regular insulin. Will do pattern fingerstick blood sugars. 6. Constipation. We have placed her on a bowel regimen, and she will get Colace and MiraLAX. 7. Obstructive sleep apnea. We have ordered for the patient to have continuous positive airway pressure at night. 8. Deep vein thrombosis prophylaxis will be provided with sequential compression devices. We are awaiting a Hemoccult stool. The patient has been placed on PVC with telemetry. She will have vital signs every 4 hours. Will do strict intake and output, incentive spirometry. She will receive daily weight. She will be on a diabetic and heart healthy diet. We will repeat a CBC and BMP with magnesium, as well as cardiac enzymes in the morning. Further orders and recommendations pending hospital course, diagnostic studies, and physician evaluation. Dictated by PANCHITO Lui for Jasen Franco MD cc: Jasen Franco MD [facility]
[2019-07-05] MEDS ORDERED: LIPITOR PO SCH (09:00)
[2019-07-05] MEDS ORDERED: PATIENT'S OWN MED NAS SCH (09:00)
[2019-07-05] MEDS ORDERED: ANUSOL-HC CREAM PR PRN (09:00)
[2019-07-05] MEDS ORDERED: NASONEX NASAL SPRAY NAS SCH (09:00)
[2019-07-05] MEDS: COLACE PO SCH (10:38)
[2019-07-05] MEDS: ASPIRIN EC PO SCH (10:38)
[2019-07-05] MEDS: COREG PO SCH ×2 (10:38→21:41)
[2019-07-05] MEDS: LYRICA PO SCH (10:38)
[2019-07-05] MEDS: CALTRATE 600 + D PO SCH (10:38)
[2019-07-05] MEDS: MAG-OX PO SCH (10:39)
[2019-07-05] MEDS: DALIRESP PO SCH (10:39)
[2019-07-05] MEDS: ZANTAC PO SCH ×2 (10:39→21:41)
[2019-07-05] MEDS: ZYRTEC PO SCH (10:39)
[2019-07-05] MEDS: KLOR-CON PO SCH (10:39)
[2019-07-05] MEDS: VITAMIN D PO SCH (10:39)
[2019-07-05] MEDS: LACTULOSE PO SCH ×3 (10:40→17:14)
[2019-07-05] MEDS: FLONASE NAS SCH (10:40)
[2019-07-05] MEDS: NON-FORMULARY BULK MED INH SCH (11:26)
[2019-07-05] MEDS: TEMOVATE 0.05% CREAM TOP SCH ×2 (12:31→21:40)
[2019-07-05] MEDS: DIPROSONE 0.05% CREAM TOP SCH ×2 (12:31→21:40)
[2019-07-05] MEDS: PERCOCET-10 PO PRN (12:41)
--- NOTE | 2019-07-05 13:47 | CARDIOLOGY CONSULTATION ---
DATE: 07/05/2019 CHIEF COMPLAINT ON PRESENTATION: Shortness of breath and a fall at home. HISTORY OF PRESENT ILLNESS: Ms. Welch is a 59-year-old, black female with a history of COPD with home oxygen therapy, right-sided heart failure, diabetes, and hypertension. She had a previous evaluation in April. She re-presented for continued bouts of shortness of breath and an apparent fall at home. There was no syncope involved. She just got weak and apparently fell onto her backside. No apparent injuries. She has not reported any increase in swelling lately. She has been compliant with her home oxygen therapy but has not been using a CPAP. She denies any orthopnea. She has had what sounds like a baseline level of cough with no fevers. She denies any overt chest pain. PAST MEDICAL HISTORY: Significant for: 1. COPD/sleep apnea, on home oxygen therapy. 2. Obesity. 3. Type 2 diabetes. 4. Hyperlipidemia. 5. Reflux disease. SOCIAL HISTORY: She recently lived in [place] and moved here in November but has been back and forth to [place]. In that time period, she has not been established with physicians in the area yet. 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 Quit smoking around 7 years ago. Rare alcohol. FAMILY HISTORY: Mother had a stroke and a heart attack at the age of 79. REVIEW OF SYSTEMS: Review of systems is negative except for those things mentioned in the HPI. PHYSICAL EXAMINATION: Patient is afebrile. Heart rate is 98. Her blood pressure is 125/78. On presentation, it was 119/81. General: She is in no acute distress. She is very pleasant. HEENT: Oropharynx is moist. Eye examination shows pink conjunctivae and white sclerae. Neck: Examination shows no obvious thyromegaly or thyroid tenderness. Cardiovascular: She sounds to be in a regular rate and rhythm. She has no obvious murmurs. She has no S3. She has no lower extremity edema. Her chest exam sounds relatively clear. No increased work of breathing. Abdomen: Soft, nontender. She has no obvious organomegaly. Skin Examination: Warm and dry throughout, without any rashes. Neurological: She is moving all extremities well. She has no lateralizing deficits. PERTINENT DATA: She had a chest CT which suggested COPD, right-sided fibrothorax with pulmonary scarring. There was evidence for cardiomegaly, trace bilateral pleural effusions, some hazy interstitial pulmonary edema bilaterally. Her echocardiogram on presentation on the at 2:57 a.m. showed sinus rhythm. She had some evidence of right ventricular hypertrophy as well as right atrial enlargement. EKG on the at 21:07 again shows evidence for right ventricular hypertrophy, right atrial enlargement. Lab data demonstrates a white count of 13.6, hematocrit of 50, platelet count of 222,000. Her sodium is 140, potassium 5.1, bicarbonate level was 41, her BUN was 18, creatinine 0.8. Her proBNP was 347 on presentation with negative cardiac enzymes. ASSESSMENT: Ms. Welch is a 59-year-old female who presented with some shortness of breath as well as a fall. PLAN: At this point, I would recommend continuation of her home diuretic therapy. Her proBNP is not particularly elevated, suggesting that she is at the dryer range. She has had a negative fluid balance thus far. I would not recommend repeating an echocardiogram given that she just had an echocardiogram checked in April. This demonstrated marked dilatation of the right ventricle with evidence for right ventricular pressure and volume overload. The LV function was normal. I have no acute recommendations at this time. cc: Jeromy Tamayo MD
[2019-07-05 14:20] LABS: ALLEN TEST YES; BE 19.9 mmoll (-3.0-3.0); BLOOD TYPE ARTERIAL; HCO3-(ACT) 40.3 mmoll (20.0-26.0); METHB 1.1 % (0.0-1.5); PO2(98.6) 59 mmHg (60-100); SAMPLE BLOOD; SAO2 93.9 % (95.0-100.0); THB 14.9 g/dL (11.5-17.4); pH(98.6) 7.43 (7.35-7.45)
[2019-07-05 14:22] LABS: MODALITY CANNULA
[2019-07-05 14:23] LABS: PCO2(98.6) 74 mmHg (35-45)
[2019-07-05] MEDS: GAVISCON PO SCH (17:14)
[2019-07-05] MEDS ORDERED: ATARAX PO SCH (21:00)
--- NOTE | 2019-07-06 00:26 | PULMONOLOGY CONSULTATION ---
DATE: 07/05/2019 REASON FOR CONSULTATION: Pulmonary hypertension. HISTORY OF PRESENT ILLNESS: Ms. Welch is a 59-year-old black female with extensive tobacco history who has had multiple hospital admission while in [place], [place]. She is new to this area and had 1 admission in April. She has not established a primary care physician, advanced registered nurse, or pulmonary physician. The patient reports she was diagnosed with COPD many years ago and has been on oxygen therapy for approximately 7 years. She has obstructive sleep apnea but her CPAP device was broke by her report. The patient reports she was admitted to the hospital many years ago with severe bilateral pneumonia requiring intubation and mechanical ventilation. She is not sure if she had a chest tube at that time. The patient did undergo a thoracentesis approximately 4 years ago, which she reports was related to "drinking too much fluid." The patient denies history of tuberculosis exposure. She denies overt asbestos exposure but she did live in houses with a boyfriend while he was remodeling older houses and asbestos exposure is suspected. The patient underwent echocardiogram during her April visit, which revealed a PA systolic pressure of 70. The patient reports she was sitting at the table with her daughter eating when 1 of her oxygen tanks ran out. She became syncopal or presyncopal and was brought to the emergency room. She has recovered. PAST MEDICAL HISTORY: 1. Obstructive sleep apnea. Not currently wearing her CPAP device. 2. Chronic hypoxemic respiratory failure. 3. Chronic obstructive pulmonary disease. 4. Diabetes mellitus with possible neuropathy in the left foot (left foot also injured years ago). 5. Diabetes mellitus. 6. Obesity. 7. Dyslipidemia. 8. Gastroesophageal reflux disease. 9. Status post section. SOCIAL HISTORY: Prior tobacco use. She has had several jobs. 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 She denies current tobacco use. She has occasional alcohol use. FAMILY HISTORY: Father had dementia possibly related to prior concussions and at the age of 84. Mother at 79 from a myocardial infarction . PHYSICAL EXAMINATION: Reveals an obese black female resting comfortably in no distress. Blood pressure 122/72, heart rate 104, respiratory rate 26, O2 saturation 96% on 3 L per nasal cannula.HEENT: Pupils are equal and reactive. Oropharynx is clear. Neck: Supple. Chest: Reveals prolonged expiratory phase. Cardiac: S1, S2. Abdomen: Obese and soft. Extremities: Reveal trace edema. LABORATORIES: Arterial blood gas reveals a pH of 7.43, pCO2 of 74, PO2 of 59 on [address] scan of the thorax reveals cardiomegaly. Calcified pleural plaques in the right thorax. Pleural thickening in the left lung predominantly in the lung base. Moderate emphysematous changes. IMPRESSION: A 59-year-old with 1. Transient altered mental status likely related to hypoxemia when not wearing her oxygen. 2. Obstructive sleep apnea. 3. Calcified pleural plaque on CT scan. She may have been exposed to asbestos while living in a house that her boyfriend was remodeling. She had significant bilateral pneumonia requiring intubation and mechanical ventilation. It is possible she had an empyema or other illness affecting her chest bilaterally. 4. Severe pulmonary hypertension. 5. Chronic hypoxemic respiratory failure. 6. Chronic hypercapnic respiratory failure. 7. Morbid obesity. RECOMMENDATIONS: 1. Attempt to obtain old records from 2 hospitals she visited in [place], [place] to help complete her database. 2. Strongly encourage patient to wear oxygen 24 hours a day 7 days a week. 3. Please ask [employer] if they can help obtain a CPAP device. 4. Encourage influenza vaccine. 5. Encourage weight loss. cc: Aniket Kong MD
[2019-07-06] MEDS: DUONEB (A & A) INH SCH ×3 (03:59→11:01)
[2019-07-06] MEDS: PERCOCET-10 PO PRN (04:03)
[2019-07-06] MEDS: HUMULIN R SUBQ SCH (06:08)
--- NOTE | 2019-07-06 06:18 | Diag Imaging Result Doc PS360 ---
CHEST-PORTABLE - 07/06/2019 INDICATION: dyspnea COMPARISON: 07/04/2019 FINDINGS: Stable cardiomegaly and pulmonary vascular congestion. Stable pulmonary edema diffusely. Stable small bilateral pleural effusions. IMPRESSION: No change from prior. Electronically signed by Roderick Hooks 07/06/2019 6:15 AM
[2019-07-06 06:21] LABS: BASO# 0.03 X1000 (0.0-0.2); BASO% 0.2 % (0.0-0.8); EOS# 0.31 X1000 (0.0-0.7); EOS% 1.9 % (0.0-10.0); HEMATOCRIT 52.5 % (37.0-47.0); HEMOGLOBIN 14.4 g/dL (12.0-16.0); IMM GRAN# 0.08 X1000 (0.0-0.04); IMM GRAN% 0.5 % (0.0-0.5); LYMPH# 1.35 X1000 (1.2-3.4); LYMPH% 8.1 % (20.5-51.1); MCH 25.3 PG (27-31); MCHC 27.4 g/dL (33-37); MCV 92.3 FL (81-99); MONO# 1.22 X1000 (0.11-0.59); MONO% 7.3 % (1.7-9.3); MPV 11.2 FL (7.4-10.4); NEUT# 13.68 X1000 (1.4-6.5); PLT 233 X1000 (130-400); RBC 5.69 XMIL (4.2-5.4); RDW 18.5 % (11.5-14.5); WBC 16.67 X1000 (4.8-10.8)
[2019-07-06 06:41] LABS: AGAP 7; BUN 20 mg/dL (8-22); CALCIUM 9.4 mg/dL (8.8-10.2); CHLORIDE 88 mmol/L (98-107); COSMO 281; CREATININE 0.7 mg/dL (0.5-0.9); ESTIMATED GFR > 60; GLUCOSE 153 mg/dL (70-104); MAGNESIUM 1.7 mg/dL (1.5-2.7); POTASSIUM 4.2 mmol/L (3.5-5.1); SODIUM 138 mmol/L (136-145); TCO2 43 mmol/L (25-35)
[2019-07-06 07:38] VITALS: BP 120/67
[2019-07-06] MEDS: NON-FORMULARY BULK MED INH SCH (08:10)
[2019-07-06] MEDS: COLACE PO SCH (08:58)
[2019-07-06] MEDS: LYRICA PO SCH (08:58)
[2019-07-06] MEDS: VITAMIN D PO SCH (08:58)
[2019-07-06] MEDS: DALIRESP PO SCH (08:59)
[2019-07-06] MEDS: KLOR-CON PO SCH (08:59)
[2019-07-06] MEDS ORDERED: LOVENOX SUBQ SCH (09:00)
[2019-07-06] MEDS: ASPIRIN EC PO SCH (09:00)
[2019-07-06] MEDS: CALTRATE 600 + D PO SCH (09:00)
[2019-07-06] MEDS: GAVISCON PO SCH (09:00)
[2019-07-06] MEDS: LACTULOSE PO SCH (09:01)
[2019-07-06] MEDS: ZANTAC PO SCH (09:01)
[2019-07-06] MEDS: ZYRTEC PO SCH (09:01)
[2019-07-06] MEDS: MAG-OX PO SCH (09:01)
[2019-07-06] MEDS: DIPROSONE 0.05% CREAM TOP SCH (09:02)
[2019-07-06] MEDS: FLONASE NAS SCH (09:02)
[2019-07-06] MEDS: TEMOVATE 0.05% CREAM TOP SCH (09:03)
[2019-07-06] MEDS: COREG PO SCH (09:04)
[2019-07-06] MEDS ORDERED: LIPITOR PO SCH (21:00)
--- NOTE | 2019-07-07 09:38 | DISCHARGE SUMMARY ---
ADMISSION DATE: 07/05/2019 DISCHARGE DATE: 07/06/2019 DISCHARGE DISPOSITION: Home with home oxygen and nighttime CPAP. DISCHARGE CONDITION: Hemodynamically stable. Patient is alert oriented x3. Denies headache, chest pain, shortness of breath, nausea, vomiting, abdominal pain, diarrhea or constipation. She is able to come out of bed and go to the bathroom. I provided her detailed discharge instructions about proper medication reconciliation, and getting a repeat lab test done within 5 days after discharge establishing care with her regular physician, maintenance supervisor electrical and supply planner after hospitalization. I answered all of her questions answered satisfactorily. DISCHARGE DIAGNOSES: 1. Presyncope, thought to be related to hypoxia because of noncompliance with home oxygen. 2. Acute on chronic congestive heart failure with preserved ejection fraction exacerbation mild. 3. Leukocytosis, nonspecified. 4. Left foot pain without any evidence of fracture. OTHER DIAGNOSES: 1. Prior history of tobacco abuse and chronic obstructive pulmonary disease. 2. History of chronic hypoxic respiratory failure on home 2 to 3 L nasal cannula oxygen. 3. History of obstructive sleep apnea on nighttime CPAP. 4. History of [id number] diabetes mellitus. 5. Hyperlipidemia. 6. History of diabetic neuropathy. 7. History of chronic gastroesophageal reflux disease and seasonal allergies. 8. Chronic constipation. 9. Severe pulmonary hypertension. DISCHARGE MEDICATIONS: 1. Hydroxyzine 25 mg at nighttime. 2. Albuterol 8.5 g inhalation every 4 to 6 hours as needed for shortness of breath. 3. Ammonium lactate 140 g topical. 4. Hydrocortisone 2.5% cream with perineal applicator 1 application per rectal b.i.d. 5. Aspirin 81 mg daily. 6. Calcium carbonate 500 mg daily. 7. Cetirizine 10 mg daily. 8. Roflumilast 500 mcg daily. 9. Betamethasone cream topical b.i.d. 10. Docusate 100 mg daily. 11. Albuterol ipratropium nebulization every 4 hours as needed for shortness of breath. 12. Azelastine fluticasone nasal spray nasal inhaled b.i.d. 13. Furosemide 20 mg daily. 14. Metformin 500 mg with breakfast. 15. Lactulose 10 g t.i.d. 16. Atorvastatin 20 mg daily. 17. Pregabalin 150 mg daily. 18. Magnesium oxide 40 mg daily. 19. Spiriva 2 puff inhaled daily 20. Fluticasone vilanterol inhaler 162.5 25 mg 1 inhalation daily. 21. Vitamin B12 1000 mcg daily. 22. Vitamin D3 5000 units daily. 23. Ranitidine 150 mg b.i.d. 24. Carvedilol 3.1 25 mg b.i.d. 25. Potassium chloride 20 mEq p.o. daily. CONSULTATIONS DURING HOSPITALIZATION: 1. Dr. Kong of Pulmonology. 2. Dr. Jeromy Tamayo of Cardiology. VITALS: At the time of discharge temperature 98.2 degrees, pulse 92, respiratory 14, blood pressure 120/60, and saturating 95% on 3 L nasal cannula oxygen. PHYSICAL EXAMINATION: General: Not in acute distress. HEENT: Oral cavity is moist. Lungs: Air entry bilaterally equal. No wheeze or crackles. Heart: S1, S2 normal. No murmur or gallop. Abdomen: Soft, nontender. No lower extremity edema. She did not have a hepatojugular reflex. Neurologic: She was alert and oriented x3. She was able to move all of her extremities spontaneously. Answers questions appropriately. [place]: [place] [address], hemoglobin 14.4, and platelet 233,000. ABG had pH of 7.43, pCO2 of 74 suggestive of chronic hypercarbia. BUN is 20, creatinine 0.7, and potassium 4.2. Her troponins were negative x3. Urinalysis did not have any pyuria. Stool occult blood test was negative. IMAGING: On hospital admission, chest CT had congestive heart failure, COPD, right-sided fibrothorax with pulmonary scarring. Chest x-ray on 07/06 had stable cardiomegaly and pulmonary vascular congestion, and stable pulmonary edema diffusely. However, patient was not feeling short of breath, and it was decided to discharge her on oral Lasix. EKG on admission had normal sinus rhythm and right ventricular hypertrophy. HOSPITAL COURSE SUMMARY: Ms. Welch is a 59-year-old lady who presented on the night of 07/04/2019 with chief complaints of orthopnea and shortness of breath, paroxysmal nocturnal dyspnea on exertion, shortness of breath without any fevers or chills. Apparently, patient was not using oxygen for 15 minutes, and she started coming out of bed and walking. At one point, she started feeling lightheaded and almost fell down. She had to hold on to nearby objects. She may have twisted her ankle during that. She was having left foot pain. Considering her shortness of breath and left foot pain, she decided to come to the hospital. In the emergency room, she was hemodynamically stable. A chest CT performed had pulmonary vascular congestion and fibrotic changes affecting the lung so the pulmonology and Cardiology team was involved. The patient was started on IV diuresis. With IV diuresis, her clinical condition improved. Cardiology team did not think that she was in acute heart failure exacerbation considering her proBNP was only 347. Pulmonology Team had recommended that the patient could have asbestos exposure or empyema, which could have resulted into pleural thickening of the right pleura, which was evident on CT scan. She was counseled about scheduling an appointment with maintenance supervisor electrical and regular provider as well as a heart doctor. At the time of discharge, the patient was counseled about getting repeat blood test done and taking her medications regularly. She was also counseled about proper medication reconciliation. Apparently, patient moved from [place] recently, and had not been under any provider's care. TIME SPENT: More than 30 minutes of time was spent in discharging this patient. Plan of care was discussed with her. All of her questions were answered. cc: Joseph Richter MD MTDD
== END 2019-07-06 13:00 | disposition home health service (06) ==
LOC: SUPCPDRO → ED 18:40 → INTOOBSV 07-05 00:02 → EDIPHOLD 07-05 00:02 → SUATTDRO 07-05 00:02 → 2N 07-05 09:06
PROVIDERS: ATTEND Internal Medicine